=== PATIENT | female | born 1945 | race Hispanic/Latino ===

== ENCOUNTER 2017-10-26 10:18 | Outpatient (CLI) | payer BC ==
[2017-10-26 11:09] LABS: Albumin 4.3 g/dL (3.9-5); Calcium 9.7 mg/dL (8.4-10.2); Chol/HDL Ratio 2.74 %
[2017-10-26 11:38] LABS: Free T4 (Free Thyroxine) 1.53 ng/dL (0.76-1.46)
== END 2017-10-26 10:19 | disposition home or self-care (01) ==
LOC: LAB 10:18
PROVIDERS: ATTEND Internal Medicine
DX: E78.2 Mixed hyperlipidemia (principal); I10 Essential (primary) hypertension; E03.8 Other specified hypothyroidism; K21.9 Gastro-esophageal reflux disease without esophagitis; E78.00 Pure hypercholesterolemia, unspecified; M19.90 Unspecified osteoarthritis, unspecified site; E03.9 Hypothyroidism, unspecified; Z87.891 Personal history of nicotine dependence
CPT/HCPCS: 36415; 80053; 80061; 84439; 84443; 84480

== ENCOUNTER 2018-04-05 11:52 | Outpatient (CLI) | payer BC ==
--- NOTE | 2018-04-05 13:16 | XRay Report ---
Weight-bearing AP and lateral right knee: Pain. There is mild anterior flexion of the knee. There is a mild genu valgus angulation of the knee joint. The lateral knee joint space is narrowed and large periarticular spurs are identified laterally. The articular margins still appear intact. The medial knee joint space appears generally unremarkable. There is retropatellar narrowing with articular spurs both superiorly and inferiorly. The bones appear moderately well mineralized. There is no evidence of swelling nor effusion. Impression: Degenerative lateral joint compartment changes with genu valgus angulation.
== END 2018-04-05 11:53 | disposition home or self-care (01) ==
LOC: XRAY 11:52
PROVIDERS: ATTEND Orthopaedic Surgery
DX: M17.11 Unilateral primary osteoarthritis, right knee (principal); M21.061 Valgus deformity, not elsewhere classified, right knee; K21.9 Gastro-esophageal reflux disease without esophagitis; I10 Essential (primary) hypertension; E66.9 Obesity, unspecified; M19.90 Unspecified osteoarthritis, unspecified site; E03.9 Hypothyroidism, unspecified; Z87.891 Personal history of nicotine dependence

== ENCOUNTER 2018-09-13 11:59 | Outpatient (CLI) | payer BC ==
[2018-09-13 12:43] LABS: Basophils # (Auto) 0.1 K/mm3 (0.0-0.1); Basophils % (Auto) 0.7 % (0.0-1.8); Eosinophils # (Auto) 0.3 K/mm3 (0.0-0.4); Eosinophils % (Auto) 2.9 % (0.0-4.3); Hematocrit 32.5 % (30.3-42.9); Hemoglobin 11.1 gm/dl (10.1-14.3); Lymphocytes # (Auto) 2.9 K/mm3 (1.2-5.4); Lymphocytes % (Auto) 32.2 % (13.4-35.0); Mean Corpuscular HGB Conc 34 % (30-34); Mean Corpuscular Volume 90 fl (79-97); Monocytes # (Auto) 0.6 K/mm3 (0.0-0.8); Monocytes % (Auto) 6.8 % (0.0-7.3); Platelet Count 362 K/mm3 (140-440); Red Blood Count 3.62 M/mm3 (3.65-5.03); Red Cell Distribution Width 12.6 % (13.2-15.2)
[2018-09-13 14:07] LABS: Albumin 4.3 g/dL (3.9-5); Calcium 10.9 mg/dL (8.4-10.2)
[2018-09-13 14:23] LABS: Chol/HDL Ratio 3.25 %
[2018-09-16 13:00] LABS: Vitamin D, 25-OH, D2 <4 ng/mL
== END 2018-09-13 12:00 | disposition home or self-care (01) ==
LOC: LAB 11:59
PROVIDERS: ATTEND Internal Medicine
DX: E78.2 Mixed hyperlipidemia (principal); I10 Essential (primary) hypertension; E03.8 Other specified hypothyroidism; K21.9 Gastro-esophageal reflux disease without esophagitis; E78.00 Pure hypercholesterolemia, unspecified; E66.9 Obesity, unspecified
CPT/HCPCS: 36415; 80053; 80061; 82306; 83516; 84436; 84443; 85025

== ENCOUNTER 2018-09-28 11:32 | Outpatient (CLI) | payer BC | END 2018-09-28 11:33 | disposition home or self-care (01) | LOC: LAB 11:32 | PROVIDERS: ATTEND Internal Medicine | DX: D64.9 Anemia, unspecified (principal); K21.9 Gastro-esophageal reflux disease without esophagitis; I10 Essential (primary) hypertension; E66.9 Obesity, unspecified; E03.9 Hypothyroidism, unspecified | CPT/HCPCS: 36415; 82270; 82607; 82728; 82747; 83540; 85045 ==

== ENCOUNTER 2019-02-08 06:32 | Inpatient (IN) | payer BC, MEDICARE ==
[2019-01-31 13:14] LABS: Basophils # (Auto) 0.1 K/mm3 (0.0-0.1); Eosinophils # (Auto) 0.4 K/mm3 (0.0-0.4); Eosinophils % (Auto) 4.4 % (0.0-4.3); Hematocrit 34.4 % (30.3-42.9); Hemoglobin 11.6 gm/dl (10.1-14.3); Lymphocytes # (Auto) 2.7 K/mm3 (1.2-5.4); Lymphocytes % (Auto) 33.3 % (13.4-35.0); Mean Corpuscular HGB Conc 34 % (30-34); Mean Corpuscular Volume 89 fl (79-97); Monocytes # (Auto) 0.5 K/mm3 (0.0-0.8); Monocytes % (Auto) 5.6 % (0.0-7.3); Platelet Count 329 K/mm3 (140-440); Red Blood Count 3.89 M/mm3 (3.65-5.03); Red Cell Distribution Width 13.2 % (13.2-15.2)
[2019-01-31 13:33] LABS: Calcium 10.1 mg/dL (8.4-10.2)
[~2019-02-08 06:32] MED LIST: BUPIVACAINE/PF (0.5%) 5 MG/1 ML 30 ML VIAL INFILTRATI ONE; MORPHINE 10 MG/1 ML INJ IM ONE; SODIUM CHLORIDE 0.9% 50 ML VIAL INFILTRATI ONE; SODIUM CHLORIDE 0.9% IRRIG SOLN 2000 ML IR ONE
[2019-02-08] MEDS ORDERED: fentaNYL 100 MCG/2 ML INJ IV NR (07:30)
[2019-02-08] MEDS ORDERED: ACETAMINOPHEN 500 MG TAB PO NR (07:31)
[2019-02-08] MEDS: LACTATED RINGERS 1,000 ML IV SCH (07:40)
[2019-02-08] MEDS ORDERED: TRANEXAMIC ACID 1,000 MG/10 ML ONE (08:00)
[2019-02-08] MEDS ORDERED: BUPIVACAINE/PF (0.5%) 5 MG/1 ML 30 ML VIAL INFILTRATI ONE ×2 (08:00→10:28)
[2019-02-08] MEDS ORDERED: MIDAZOLAM 2 MG/2 ML INJ IV NR (08:00)
[2019-02-08] MEDS ORDERED: CELECOXIB 200 MG CAP PO NR (08:00)
[2019-02-08] MEDS ORDERED: KETOROLAC 30 MG/1 ML INJ ONE (08:00)
[2019-02-08] MEDS ORDERED: SODIUM CHLORIDE 0.9% 200 ML ONE (08:01)
[2019-02-08] MEDS ORDERED: SODIUM CHLORIDE 0.9% 50 ML ONE (08:01)
[2019-02-08] MEDS ORDERED: ONDANSETRON 4 MG/2 ML INJ IV PRN ×2 (08:10→10:58)
[2019-02-08] MEDS ORDERED: HYDROmorphone 1 MG/1 ML INJ IV PRN (08:10)
--- NOTE | 2019-02-08 08:11 | Anesthesia Day of Surgery ---
Anesthesia Day of Surgery - Day of Surgery Patient Examined: Yes Patient H&P Reviewed: Yes Patient is NPO: Yes
--- NOTE | 2019-02-08 08:14 | Anesthesia Consultation ---
Anesthesia Consult and Med Hx Date of service: 02/08/19 - Airway Anesthetic Teeth Evaluation: Good, Caps ROM Head & Neck: Adequate Mental/Hyoid Distance: Adequate Mallampati Class: Class III Intubation Access Assessment: Probably Good - Pre-Operative Health Status ASA Pre-Surgery Classification: ASA3 Proposed Anesthetic Plan: General Nerve Block: AC - Pulmonary Hx Smoking: Yes (STOPPED 1995) SOB: Yes (SOB) Hx Sleep Apnea: Yes (DX SLEEP APNEA WITH CPAP USE.) - Cardiovascular System Hx Hypertension: Yes (X 10 YRS) Hx Heart Murmur: Yes - Central Nervous System Hx Back Pain: Yes - Gastrointestinal Hx Gastroesophageal Reflux Disease: Yes (mild, controlled w/ meds) - Endocrine Hx Thyroid Disease: Yes Hx Hypothyroidism: Yes (ON DAILY MEDS) - Other Systems Hx Cancer: No Hx Obesity: Yes (morbid)
[2019-02-08] MEDS ORDERED: fentaNYL 100 MCG/2 ML INJ ONE (08:17)
[2019-02-08] MEDS ORDERED: PROPOFOL 200 MG/20 ML VIAL IV ONE (08:17)
[2019-02-08] MEDS ORDERED: SODIUM CHLORIDE 0.9% 100 ML ONE (08:18)
[2019-02-08] MEDS ORDERED: LIDOCAINE MPF (2%) 20 MG/1 ML VIAL 5 ML ONE (08:18)
[2019-02-08] MEDS ORDERED: BUPIVACAINE-EPINEPHRINE/PF 0.25%-1:200,000 (30 ML) VIAL INFILTRATI ONE (08:19)
[2019-02-08] MEDS ORDERED: TRANEXAMIC ACID 1,000 MG/10 ML IV ONE (09:20)
[2019-02-08] MEDS ORDERED: ceFAZolin/STERILE WATER 2 GM/20 ML SYRINGE IV NR (09:30)
[2019-02-08] MEDS ORDERED: MORPHINE 10 MG/1 ML INJ ONE (09:35)
[2019-02-08] MEDS ORDERED: SODIUM CHLORIDE 0.9% IRRIG SOLN 2000 ML IR ONE (10:15)
[2019-02-08] MEDS ORDERED: MORPHINE 10 MG/1 ML INJ IM ONE (10:28)
[2019-02-08] MEDS ORDERED: SODIUM CHLORIDE 0.9% 50 ML VIAL INFILTRATI ONE (10:28)
[2019-02-08] MEDS ORDERED: methylPREDNISolone ACETATE 40 MG/1 ML INJ ONE (10:33)
[2019-02-08] MEDS ORDERED: ONDANSETRON 4 MG/2 ML INJ ONE (10:38)
[2019-02-08] MEDS ORDERED: PHENYLEPHRINE/NS 1,000 MCG/10 ML SYRINGE (OR USE) IV ONE (10:39)
--- NOTE | 2019-02-08 11:08 | Procedure Note ---
Date of procedure: 02/08/19 Pre-op diagnosis: severe arthritis right knee Post-op diagnosis: same Procedure: Right total knee arthroplasty Procedure The patient was brought to the or after the obturator nerve block and preoperative holding, she was placed in the or table in supine position following induction with Mac anesthesia the patient's right lower extremity was prepped and draped in the usual sterile manner. A timeout procedure was done to identify the patient and the correct operative site The leg was exsanguinated followed by insufflation of the pneumatic tourniquet to 300 mmHg. The midline incision was made centered over the patella this is taken down distally towards due to multiple medical incision was carried down sharply through skin and subcutaneous A medial parapatellar approach was used to gain access to the knee joint. The knee was flexed to 90 following routine examination revealed typical osteoarthritic changes where along the medial lateral compartments with peripheral osteophytes and bare bone in some places followinga large drill bit was used to enter the distal femoral canal following this the distal femoral cutting was applied approximately 8-9 mm of bone was resected next the attention was turned to the proximal tibia using the external alignment again 8-9 mL of proximal tibia was resected care was taken to protect the medial and lateral collateral ligaments the cruciate ligaments were sacrificed longus sizing of the femoral component was performed a 4 plus femoral component was selected this was followed by application of the 4 in 1 cutting block care was taken to resect the anterior posterior as well as solution at this at this point in time the knee was sized A flexion and extension Of 10 mm was selected this was followed by application of the trial components the knee was then taken to or range of motion and was found to be stable following this fixation holes were applied to both the distal femur and proximal tibia care was taken to remove the medial lateral menisci as well as any excess bone and soft tissue debris the knee was then copiously irrigated using pulse lavage The bone cement was mixed the bone bleeding surfaces were wiped dry using sterile gauze for menisci tibial component was inserted using the cement technique the 10 mm polyethylene spacer was applied and secured this was followed by placement of the femoral component again excess cement was removed the knee was then held in flexion ostomy extension until the cement hardened following hardening of cement again a second look was performed and the residual soft tissue N cement debris were removed at this time the knee was then taken through a range of motion and was found to be stable next the medial patellar retinaculum incision was repaired using #1 Vicryl in interrupted [id number] suture pattern the subcutaneous and skin were closed in a routine manner. Dressings were applied the patient tolerated the procedure the retinal complications he was then taken to postanesthesia recovery Anesthesia: MAC, regional Surgeon: SCARLET BARRETT Funding Analyst: EDVIN PERALES Estimated blood loss: 50-100ml Pathology: list (bone and cartilage right knee) Specimen disposition: to lab Condition: stable Disposition: PACU
--- NOTE | 2019-02-08 14:56 | Post Anesthesia Evaluation ---
- Post Anesthesia Evaluation Patient Participated: Yes Airway Patent: Yes Stable Respiratory Function: Yes Nausea/Vomiting: No Temp > 96.8F: Yes Pain Manageable: Yes Adequeate Hydration: Yes Anesthesia Complications: No Block Receding Appropriately: Yes Patient on Ventilator: No
[2019-02-08] MEDS: HYDROcodone/ACETAMINOPHEN 5-325 MG TAB PO PRN (22:47)
[2019-02-09] MEDS: LACTATED RINGERS 1,000 ML IV SCH ×2 (02:07→15:46)
[2019-02-09] MEDS: HYDROcodone/ACETAMINOPHEN 5-325 MG TAB PO PRN ×3 (07:33→19:48)
[2019-02-09 09:29] LABS: Hemoglobin 10.1 gm/dl (10.1-14.3)
--- NOTE | 2019-02-09 10:00 | XRay Report ---
RIGHT KNEE, 3 VIEWS INDICATION: postop evaluation. COMPARISON: None. IMPRESSION: Recent right knee arthroplasty changes are evident. The hardware appears well applied. T here is normal alignment at the joint space. No fracture or bone lesion. Anterior soft tissue swelli ng and gas are consistent with recent surgery. Signer Name: Rob Almaraz Jr, MD Signed: 02/09/2019 9:55 AM Workstation Name: [id number]
[2019-02-09] MEDS: ENOXAPARIN 40 MG/0.4 ML INJ SUB-Q SCH (13:35)
--- NOTE | 2019-02-09 22:45 | Progress Note ---
Assessment and Plan s/p right TKR post op day 1 doing ok continue PT and observation Subjective Date of service: 02/09/19 Interval history: c/o right knee pain after PT session, otherwise ok Objective Vital signs: Vital Signs - 12hr 02/09/19 02/09/19 02/09/19 13:05 16:12 19:17 Temperature 97.9 F 97.9 F 98.3 F Pulse Rate 72 73 74 Respiratory 20 20 17 Rate Blood Pressure 120/47 131/73 138/50 O2 Sat by Pulse 100 100 99 Oximetry 02/09/19 02/09/19 02/09/19 19:48 20:48 22:10 Temperature Pulse Rate Respiratory 20 18 Rate Blood Pressure O2 Sat by Pulse 98 Oximetry Incision: healing, clean and dry Weight bearing status: as tolerated - Labs CBC & BMP: 02/09/19 08:52 01/31/19 12:45 Labs: Abnormal lab results 02/09/19 Range/Units 08:52 Hct 30.0 L (30.3-42.9) %
[2019-02-09] MEDS ORDERED: ALBUTEROL 8.5 GM INHALATION IH PRN (23:31)
[2019-02-09] MEDS ORDERED: BUSPIRONE HCL 7.5 MG PO PRN (23:31)
--- NOTE | 2019-02-09 23:38 | Consultation ---
History of Present Illness - Reason for Consult Consult date: 02/09/19 medical management Requesting physician: SCARLET JACKSON - History of Present Illness Status post right TKR,. Patient doing well. No shortness of breath or chest pain. No fever or chills. Past History Past Medical History: hypertension, hypothyroidism, other (home, generalized anxiety disorder) Past Surgical History: total knee replacement Social history: lives with family Family history: hypertension Medications and Allergies Allergies Allergy/AdvReac Type Severity Reaction Status Date / Time No Known Allergies Allergy Verified 01/14/14 15:55 Home Medications Medication Instructions Recorded Confirmed Last Taken Type Lisinopril/Hydrochlorothiazide 1 tab PO DAILY 11/13/13 02/08/19 02/08/19 05:00 History [Lisinopril-Hctz 20-12.5 mg Tab] Mv,Isaias,Min/Iron/Folic Acid/Lut 1 tab PO DAILY 11/13/13 02/08/19 02/07/19 09:00 History [Complete Multi Tablet] Vitamin B Complex/Folic Acid 1 tab PO DAILY 11/13/13 02/08/19 02/07/19 09:00 History [Super Quints B-50 Tablet] Magnesium 250 mg PO DAILY 01/14/14 02/08/19 02/07/19 09:00 History Levothyroxine [Synthroid] 75 mcg PO QAM 12/09/15 02/08/19 02/07/19 09:00 History ALBUTEROL Inhaler (OR & NICU) 1 puff IH PRN PRN 01/31/19 01/31/19 Unknown History [ProAir HFA Inhaler] Ascorbic Acid [Vitamin C] 1,000 mg PO DAILY 01/31/19 02/08/19 02/07/19 09:00 History Biotin [Biotin 1,000 chew] 1,000 mcg PO DAILY 01/31/19 02/08/19 02/07/19 09:00 History Buspirone HCl [busPIRone] 7.5 mg PO PRN PRN 01/31/19 01/31/19 Unknown History Buspirone HCl [busPIRone] 15 mg PO DAILY 01/31/19 02/08/19 02/07/19 09:00 History Cholecalciferol Vit D3 [Vitamin D3 1,000 unit PO QDAY 11/2702/08/19 02/07/19 09:00 History 1,000 UNIT TAB] Tyler-3/Dha/Epa/Fish Oil [Fish Oil 1 each PO DAILY 01/31/19 02/08/19 02/07/19 09:00 History 1,200 mg Softgel] Turmeric 400 mg PO DAILY 01/31/19 02/08/19 02/07/19 09:00 History Apixaban [Eliquis] 5 mg PO DAILY #30 tablet 02/09/19 Unknown Rx Oxycodone HCl/Acetaminophen 1 each PO Q6HR PRN #30 tablet 02/09/19 Unknown Rx [Percocet 7.5/325 mg] Active Meds: Active Medications Acetaminophen/Hydrocodone Bitart ([place] 5/325) 1 each PO Q6H PRN PRN Reason: Pain, Moderate (4-6) Last Admin: 02/09/19 19:48 Dose: 1 each Documented by: Acetaminophen/Hydrocodone Bitart ([place] 5/325) 2 each PO Q6H PRN PRN Reason: Pain , Severe (7-10) Albuterol (Proair) 1 puff IH PRN PRN PRN Reason: Shortness Of Breath Cholecalciferol (Vitamin D3) 1,000 unit PO QDAY [facility] Enoxaparin Sodium (Enoxaparin) 40 mg SUB-Q QDAY [facility] Last Admin: 02/09/19 13:35 Dose: 40 mg Documented by: Lactated Ringer's (Lactated Ringers) 1,000 mls @ 75 mls/hr IV DIRECT JEANNA Last Admin: 02/09/19 15:46 Dose: 75 mls/hr Documented by: Levothyroxine Sodium (Synthroid) 75 mcg PO QAM [facility] Miscellaneous Medication (Ascorbic Acid [Vitamin C]) 1,000 mg PO DAILY [facility] Miscellaneous Medication (Buspirone Hcl [Buspirone]) 7.5 mg PO PRN PRN PRN Reason: Anxiety Miscellaneous Medication (Lisinopril/Hydrochlorothiazide [Lisinopril-Hctz 20- 12.5 Mg Tab]) 1 tab PO DAILY [facility] Ondansetron HCl (Zofran) 4 mg IV Q8H PRN PRN Reason: Nausea And Vomiting Sodium Chloride (Sodium Chloride Flush Syringe 10 Ml) 10 ml IV PRN [facility] Review of Systems All systems: negative Exam - Constitutional Vitals: Temp Pulse Resp BP Pulse Ox 98.3 F 74 18 138/50 98 02/09/19 19:17 02/09/19 19:17 02/09/19 20:48 02/09/19 19:17 02/09/19 22:10 General appearance: Present: no acute distress, well-nourished - EENT Eyes: Present: PERRL ENT: hearing intact, clear oral mucosa - Neck Neck: Present: supple, normal ROM - Respiratory Respiratory effort: normal Respiratory: bilateral: CTA - Cardiovascular Heart rate: 70 Rhythm: regular Heart Sounds: Present: S1 & S2. Absent: rub, click - Extremities Extremities: no ischemia, pulses intact, pulses symmetrical, No edema, abnormal Extremity abnormal: other (right knee in dressing) Peripheral Pulses: within normal limits - Abdominal General gastrointestinal: Present: soft, non-tender, non-distended, normal bowel sounds Female genitourinary: Present: normal - Integumentary Integumentary: Present: clear, warm, dry - Musculoskeletal Musculoskeletal: gait normal, strength equal bilaterally - Psychiatric Psychiatric: appropriate mood/affect, intact judgment & insight - Neurologic Neurologic: CNII-XII intact, moves all extremities Results - Labs CBC & Chem 7: 02/09/19 08:52 01/31/19 12:45 Labs: Abnormal lab results 02/09/19 Range/Units 08:52 Hct 30.0 L (30.3-42.9) % Assessment and Plan - Patient Problems (1) Hx of total knee arthroplasty Current Visit: Yes Status: Acute Qualifiers: Laterality: right Qualified Code(s): Z96.651 - Presence of right artificial knee joint Plan to address problem: Postop day 1 Continue physical therapy Patient was discharged on Tuesday or Tuesday after talking with Dr. Jackson [facility] therapy to be arranged by case management (2) Hypertension Current Visit: Yes Status: Chronic Qualifiers: Hypertension type: unspecified secondary hypertension Qualified Code(s): I15.9 - Secondary hypertension, unspecified; I15 - Secondary hypertension Plan to address problem: Continue antihypertensives (3) Hypothyroidism (acquired) Current Visit: Yes Status: Chronic Plan to address problem: Continue Synthroid (4) Vitamin D deficiency Current Visit: Yes Status: Chronic Plan to address problem: Continue vitamin D (5) Generalized anxiety disorder Current Visit: Yes Status: Acute Plan to address problem: Continue BuSpar (6) DVT prophylaxis Current Visit: Yes Status: Acute Plan to address problem: Continue SCDs and GI prophylaxis (7) Discharge planning issues Current Visit: Yes Status: Acute Plan to address problem: Patient to be discharged on Tuesday or Tuesday after talking with Dr. Jackson. Jered Barajas calls Dr. Jackson and conform Also case management to arrange for home health physical therapy
[2019-02-09] MEDS ORDERED: busPIRone 5 MG TAB PO PRN (23:39)
[2019-02-09] MEDS ORDERED: ALBUTEROL 2.5 MG/3 ML NEBU IH PRN (23:40)
[2019-02-10] MEDS: HYDROcodone/ACETAMINOPHEN 5-325 MG TAB PO PRN ×3 (04:59→21:47)
[2019-02-10] MEDS: LEVOTHYROXINE 75 MCG TAB PO SCH (06:19)
[2019-02-10] MEDS ORDERED: NON-FORMULARY EACH (Ascorbic Acid [Vitamin C] 1,000 MG) PO SCH (10:00)
[2019-02-10] MEDS ORDERED: LISINOPRIL PO SCH (10:00)
[2019-02-10] MEDS ORDERED: HYDROCHLOROTHIAZIDE PO SCH (10:00)
[2019-02-10] MEDS ORDERED: [UNRECOGNIZED DRUG - OTHER] PO SCH (10:00)
[2019-02-10] MEDS: LISINOPRIL 20 MG TAB PO SCH (11:38)
[2019-02-10] MEDS: FAMOTIDINE 20 MG TAB PO SCH ×2 (11:38→21:47)
[2019-02-10] MEDS: hydroCHLOROthiazide 12.5 MG CAP PO SCH (11:38)
[2019-02-10] MEDS: ENOXAPARIN 40 MG/0.4 ML INJ SUB-Q SCH (11:38)
[2019-02-10] MEDS: ASCORBIC ACID 500 MG TAB PO SCH (11:39)
[2019-02-10] MEDS: CHOLECALCIFEROL (VIT D3) 1000 UNIT TAB PO SCH (11:39)
--- NOTE | 2019-02-10 17:28 | Progress Note ---
Assessment and Plan Assessment and plan: s/p Total knee arthroplasty for severe arthritis Continue Physical Therapy Likely dc home with Home health physical therapy on Tuesday Pain management with [facility] Hypertension Continue antihypertensives Hypothyroidism Continue Synthroid Vitamin D deficiency Continue vitamin D Generalized anxiety disorder Continue BuSpar DVT prophylaxis Continue Lovenox History Interval history: Less pain right knee Doing well with ambulation with PT Hospitalist Physical - Physical exam Narrative exam: Gen: Not in acute distress, lying in bed HEENT: Normocephalic, atraumatic Neck: supple, no JVD Heart: S1 and S2 reg, no murmurs, rubs or gallop Lungs: clear to auscultation, no crackles Abd: soft, NT, non distended, normal BS Ext: Right knee and leg in splint, no clubbing, no cyanosis Neuro: Awake, alert, oriented X 3, moves all ext - Constitutional Vitals: Temp Pulse Resp BP Pulse Ox 97.0 F L 72 20 119/54 99 02/10/19 15:06 02/10/19 15:06 02/10/19 15:06 02/10/19 15:06 02/10/19 15:06 General appearance: Present: no acute distress, obese Results - Labs CBC & Chem 7: 02/11/19 05:43 02/11/19 05:43 Labs: Laboratory Last Values WBC 8.2 K/mm3 (4.5-11.0) 01/31/19 12:45 RBC 3.89 M/mm3 (3.65-5.03) 01/31/19 12:45 Hgb 10.1 gm/dl (10.1-14.3) 02/09/19 08:52 Hct 30.0 % (30.3-42.9) L 02/09/19 08:52 MCV 89 fl (79-97) 01/31/19 12:45 MCH 30 pg (28-32) 01/31/19 12:45 MCHC 34 % (30-34) 01/31/19 12:45 RDW 13.2 % (13.2-15.2) 01/31/19 12:45 Plt Count 329 K/mm3 (140-440) 01/31/19 12:45 Lymph % (Auto) 33.3 % (13.4-35.0) 01/31/19 12:45 [place] % (Auto) 5.6 % (0.0-7.3) 01/31/19 12:45 Eos % (Auto) 4.4 % (0.0-4.3) H 01/31/19 12:45 Baso % (Auto) 1.0 % (0.0-1.8) 01/31/19 12:45 Lymph # 2.7 K/mm3 (1.2-5.4) 01/31/19 12:45 [place] # 0.5 K/mm3 (0.0-0.8) 01/31/19 12:45 Eos # 0.4 K/mm3 (0.0-0.4) 01/31/19 12:45 Baso # 0.1 K/mm3 (0.0-0.1) 01/31/19 12:45 Seg Neutrophils % 55.7 % (40.0-70.0) 01/31/19 12:45 Seg Neutrophils # 4.5 K/mm3 (1.8-7.7) 01/31/19 12:45 Sodium 137 mmol/L (137-145) 01/31/19 12:45 Potassium 4.0 mmol/L (3.6-5.0) 01/31/19 12:45 Chloride 102.0 mmol/L (98-107) 01/31/19 12:45 Carbon Dioxide 17 mmol/L (22-30) L 01/31/19 12:45 Anion Gap 22 mmol/L 01/31/19 12:45 BUN 28 mg/dL (7-17) H 01/31/19 12:45 Creatinine 1.1 mg/dL (0.7-1.2) 01/31/19 12:45 Estimated GFR 49 ml/min 01/31/19 12:45 BUN/Creatinine Ratio 25 % 01/31/19 12:45 Glucose 89 mg/dL (65-100) 01/31/19 12:45 Calcium 10.1 mg/dL (8.4-10.2) 01/31/19 12:45 Total Bilirubin 0.20 mg/dL (0.1-1.2) 01/31/19 12:45 AST 19 units/L (5-40) 01/31/19 12:45 ALT 12 units/L (7-56) 01/31/19 12:45 Alkaline Phosphatase 53 units/L (35-129) 01/31/19 12:45 Total Protein 7.1 g/dL (6.3-8.2) 01/31/19 12:45 Albumin 4.0 g/dL (3.9-5) 01/31/19 12:45 Albumin/Globulin Ratio 1.3 % 01/31/19 12:45 Active Medications - Current Medications Current Medications: Generic Name Dose Route Start Last Admin Trade Name Freq PRN Reason Stop Dose Admin Acetaminophen/Hydrocodone Bitart 1 each 02/08/19 10:58 02/10/19 04:59 [place] 5/325 PO 1 each Q6H PRN Administration Pain, Moderate (4-6) Acetaminophen/Hydrocodone Bitart 2 each 02/09/19 14:58 02/10/19 11:41 [place] 5/325 PO 2 each Q6H PRN Administration Pain , Severe (7-10) Albuterol 2.5 mg 02/09/19 23:40 Proventil IH Q4HRT PRN Shortness Of Breath Ascorbic Acid 1,000 mg 02/10/19 10:00 02/10/19 11:39 Vitamin C PO 1,000 mg QDAY JEANNA Administration Buspirone HCl 7.5 mg 02/09/19 23:39 Buspar PO QDAY PRN Anxiety Cholecalciferol 1,000 unit 02/10/19 10:00 02/10/19 11:39 Vitamin D3 PO 1,000 unit QDAY JEANNA Administration Enoxaparin Sodium 40 mg 02/09/19 10:00 02/10/19 11:38 Enoxaparin SUB-Q 40 mg QDAY JEANNA Administration Famotidine 20 mg 02/10/19 10:00 02/10/19 11:38 Pepcid PO 20 mg BID JEANNA Administration Hydrochlorothiazide 12.5 mg 02/10/19 10:00 02/10/19 11:38 Hctz PO 12.5 mg QDAY JEANNA Administration Lactated Ringer's 1,000 mls @ 75 mls/hr 02/08/19 08:00 02/09/19 15:46 Lactated Ringers IV 75 mls/hr DIRECT JEANNA Administration Levothyroxine Sodium 75 mcg 02/10/19 06:00 02/10/19 06:19 Synthroid PO 75 mcg QAM@0600 JEANNA Administration Lisinopril 20 mg 02/10/19 10:00 02/10/19 11:38 Zestril PO 20 mg QDAY JEANNA Administration Ondansetron HCl 4 mg 02/08/19 10:58 Zofran IV Q8H PRN Nausea And Vomiting Sodium Chloride 10 ml 02/08/19 11:00 Sodium Chloride Flush Syringe 10 Ml IV PRN JEANNA
[2019-02-10] MEDS: LACTATED RINGERS 1,000 ML IV SCH (17:32)
[2019-02-11 06:09] LABS: Hematocrit 33.6 % (30.3-42.9); Hemoglobin 11.2 gm/dl (10.1-14.3); Mean Corpuscular HGB Conc 33 % (30-34); Mean Corpuscular Volume 90 fl (79-97); Platelet Count 339 K/mm3 (140-440); Red Blood Count 3.72 M/mm3 (3.65-5.03); Red Cell Distribution Width 13.4 % (13.2-15.2)
[2019-02-11 06:29] LABS: BUN/Creatinine Ratio 17; Blood Urea Nitrogen 15 mg/dL (7-17); Calcium 9.2 mg/dL (8.4-10.2); Hemolysis Index 135
[2019-02-11] MEDS: LEVOTHYROXINE 75 MCG TAB PO SCH (06:44)
[2019-02-11] MEDS: HYDROcodone/ACETAMINOPHEN 5-325 MG TAB PO PRN ×2 (09:45→13:34)
[2019-02-11] MEDS: FAMOTIDINE 20 MG TAB PO SCH ×2 (09:45→22:20)
[2019-02-11] MEDS: ENOXAPARIN 40 MG/0.4 ML INJ SUB-Q SCH (09:47)
[2019-02-11] MEDS: CHOLECALCIFEROL (VIT D3) 1000 UNIT TAB PO SCH (09:47)
[2019-02-11] MEDS: LISINOPRIL 20 MG TAB PO SCH (09:48)
[2019-02-11] MEDS: ASCORBIC ACID 500 MG TAB PO SCH (09:48)
[2019-02-11] MEDS: hydroCHLOROthiazide 12.5 MG CAP PO SCH (09:48)
[2019-02-12] MEDS: LEVOTHYROXINE 75 MCG TAB PO SCH (06:01)
[2019-02-12 07:49] VITALS: BP 125/56
[2019-02-12] MEDS: CHOLECALCIFEROL (VIT D3) 1000 UNIT TAB PO SCH (09:41)
[2019-02-12] MEDS: FAMOTIDINE 20 MG TAB PO SCH (09:41)
[2019-02-12] MEDS: ASCORBIC ACID 500 MG TAB PO SCH (09:41)
[2019-02-12] MEDS: ENOXAPARIN 40 MG/0.4 ML INJ SUB-Q SCH (09:42)
[2019-02-12] MEDS: LISINOPRIL 20 MG TAB PO SCH (09:42)
[2019-02-12] MEDS: hydroCHLOROthiazide 12.5 MG CAP PO SCH (09:42)
--- NOTE | 2019-02-12 15:59 | Event Note ---
Date: 02/12/19 Patient medically stable for discharge. Resume home medications.
--- NOTE | 2019-02-12 16:58 | Discharge Summary ---
Providers - Providers Date of Admission: 02/08/19 06:32 Date of discharge: 02/12/19 Attending physician: SCARLET BARRETT MD 02/08/19 11:01 Physical Therapy Evaluation and Treat [CONS] Routine Comment: Reason For Exam: postoperative evaluation Weight bearing status?: Full wt bearing Assistive devices?: Yes If so list: Walker 02/08/19 15:35 Consult to Case Management [CONS] Routine Services Needed at Discharge: Home Health Services DME Equipment Physical Therapy Notified:: CM Was contact made?: Yes If yes, spoke with:: JAMIE Comment:: WILL FOLLOW UP 02/09/19 16:47 Consult to Physician [CONS] Routine Comment: Consulting Provider: EDVIN FIGUEROA Physician Instructions: Reason For Exam: HTN, REGAN, heart murmur, Hypothyriod 02/09/19 23:39 Consult to Case Management [CONS] Routine Services Needed at Discharge: Home Health Services Physical Therapy Notified:: cm notified Primary care physician: SEGUNDO DAVIS Hospitalization Reason for admission: right knee pain Condition: Stable Procedures: right total knee replacement Hospital course: 73 y/o female with severe osteoarthritis right knee, tried conservative treatment for past several years but lately not helping to relieve symptoms. Admitted and taken to the OR where a right total knee replacement done without complications. post op seen by PT and case management services. Arrangements made for discharge with follow up in my office in 2 wks... Disposition: [id number] HOME UNDER HOME [facility] Core Measure Documentation - Palliative Care Palliative Care/ Comfort Measures: Not Applicable - Core Measures Any of the following diagnoses?: none - VTE Discharge Requirements Deep Vein Thrombosis/Pulmonary Embolism Present on Admission: No Has pt received <5 days of overlap therapy or INR<2.0: Yes Anticoagulant overlap therapy prescribed at discharge: Yes - Acute DE Discharge Requirements Aspirin at discharge: No Reason for no aspirin on DC: Medical contraindication KAMILA/ARB for LVSD if EF <40%: Not Applicable Statin for LDL = or >100 mg/dl on DC: Not Applicable - Heart Failure Discharge Requirements KAMILA/ARB for LVSD if EF <40%: Not Applicable - Stroke Discharge Requirements Statin for LDL = or >70 mg/dl on DC: Not Applicable Exam - Physical Exam Narrative exam: right knee - incision healing well, no signs of infection, negative Kana's sign, distal n/v intact - Constitutional Vitals: Temp Pulse Resp BP Pulse Ox 97.7 F 95 H 20 125/56 97 02/12/19 07:41 02/12/19 09:42 02/12/19 07:41 02/12/19 09:42 02/12/19 09:16 General appearance: Present: no acute distress, well-nourished - EENT Eyes: Present: PERRL ENT: hearing intact, clear oral mucosa - Neck Neck: Present: supple, normal ROM - Respiratory Respiratory effort: normal Respiratory: bilateral: CTA - Cardiovascular Heart Sounds: Present: S1 & S2. Absent: rub, click - Extremities Extremities: pulses symmetrical, No edema Peripheral Pulses: within normal limits - Abdominal General gastrointestinal: Present: soft, non-tender, non-distended, normal bowel sounds Female genitourinary: Present: normal - Integumentary Integumentary: Present: clear, warm, dry - Musculoskeletal Musculoskeletal: gait normal, strength equal bilaterally - Psychiatric Psychiatric: appropriate mood/affect, intact judgment & insight - Neurologic Neurologic: CNII-XII intact, moves all extremities Plan Activity: advance as tolerated Weight Bearing Status: Weight Bear as Tolerated Diet: low fat, low cholesterol, low carbohydrate Wound: keep clean and dry Special Instructions: physical therapy Durable Medical Equipment Needed Upon Discharge: Walker-Standard, Bedside Commode Follow up with: SEGUNDO DAVIS MD [Primary Care Provider] - 7 Days Prescriptions: Apixaban [Eliquis] 5 mg PO DAILY #30 tablet Oxycodone HCl/Acetaminophen [Percocet 7.5/325 mg] 1 each PO Q6HR PRN #30 tablet PRN Reason: Pain
== END 2019-02-12 17:55 | disposition home health service (06) | DRG 470 ==
LOC: 3A 06:32 → 3B-SURG 11:33
PROVIDERS: ADMIT Orthopaedic Surgery; ATTEND Orthopaedic Surgery
PROC: 0SRC0J9 Replacement of Right Knee Joint with Synthetic Substitute, Cemented, Open Approach (ICD-10-PCS; principal; 2019-02-08)
PROC: 3E0T3BZ Introduction of Anesthetic Agent into Peripheral Nerves and Plexi, Percutaneous Approach (ICD-10-PCS; 2019-02-08)
DX: M17.11 Unilateral primary osteoarthritis, right knee (principal); I10 Essential (primary) hypertension; G47.30 Sleep apnea, unspecified; K21.9 Gastro-esophageal reflux disease without esophagitis; E03.9 Hypothyroidism, unspecified; F41.1 Generalized anxiety disorder; E66.01 Morbid (severe) obesity due to excess calories; Z68.38 Body mass index [BMI] 38.0-38.9, adult; Z87.891 Personal history of nicotine dependence; Z82.49 Family history of ischemic heart disease and other diseases of the circulatory system; Z79.899 Other long term (current) drug therapy
CPT/HCPCS: 36415; 64450; 80048; 80053; 85014; 85018; 85025; 85027; 88304; 88305; 88311; 94660; 94760; G0378; A4217; C1776; J0690; J1030; J1650; J1885; J2250; J2270; J2370; J2405; J2704; J3010; J7120

== ENCOUNTER 2019-05-03 11:40 | Outpatient (CLI) | payer BC ==
[2019-05-03 12:36] LABS: Albumin 4.3 g/dL (3.9-5); Calcium 10.2 mg/dL (8.4-10.2); Chol/HDL Ratio 3.45 %
== END 2019-05-03 11:41 | disposition home or self-care (01) ==
LOC: LAB 11:40
PROVIDERS: ATTEND Internal Medicine
DX: I10 Essential (primary) hypertension (principal); E78.2 Mixed hyperlipidemia; E03.8 Other specified hypothyroidism
CPT/HCPCS: 36415; 80053; 80061; 83516; 84436; 84443

== ENCOUNTER 2019-06-01 07:26 | Outpatient (CLI) | payer BC ==
--- NOTE | 2019-06-01 10:29 | Cat Scan Report ---
CT HEAD WITHOUT CONTRAST INDICATION / CLINICAL INFORMATION: MEMORY [id number] amnesia. TECHNIQUE: Axial imaging performed from the skull apex through the skull base without the use of cont rast. Sagittal and coronal reformatted images. All CT scans at this location are performed using CT dose reduction for ALARA by means of automated exposure control. COMPARISON: None available. FINDINGS: CEREBRAL PARENCHYMA: No significant abnormality. No acute territorial infarct. HEMORRHAGE: None. EXTRA-AXIAL SPACES: Normal in size and morphology for the patient's age. VENTRICULAR SYSTEM: Normal in size and morphology for the patient's age. MIDLINE SHIFT OR HERNIATION: None. CEREBELLUM / BRAINSTEM: No significant abnormality. CALVARIUM: No significant abnormality. ORBITS: Normal as visualized. PARANASAL SINUSES / MASTOID AIR CELLS: Normal as visualized. SOFT TISSUES of HEAD: No significant abnormality. ADDITIONAL FINDINGS: None. IMPRESSION: No acute intracranial abnormality. Normal CT head for age. Signer Name: Rob Almaraz Jr, MD Signed: 06/01/2019 10:25 AM Workstation Name: [id number]
== END 2019-06-01 07:27 | disposition home or self-care (01) ==
LOC: CT 07:26
PROVIDERS: ATTEND Internal Medicine
DX: R41.3 Other amnesia (principal)
CPT/HCPCS: 70450

== ENCOUNTER 2020-08-13 13:01 | Outpatient (CLI) | payer BC | END 2020-08-13 13:02 | disposition home or self-care (01) | LOC: XRAY 13:01 | PROVIDERS: ATTEND Podiatrist Foot & Ankle Surgery | DX: M19.071 Primary osteoarthritis, right ankle and foot (principal); R22.41 Localized swelling, mass and lump, right lower limb ==

== ENCOUNTER 2021-04-29 13:33 | Outpatient (CLI) | payer BC ==
--- NOTE | 2021-04-29 18:19 | Vascular Lab Report ---
DUPLEX DOPPLER LOWER EXTREMITY VEINS, BILATERAL INDICATION / CLINICAL INFORMATION: PAIN IN BOTH LOWER EXTREMETIES M78.604. TECHNIQUE: Duplex doppler imaging was performed through the veins of both lower extremities using ronit ous compression and other maneuvers. COMPARISON: Bilateral lower extremity venous insufficiency study 08/05/2015. FINDINGS: RIGHT COMMON FEMORAL VEIN: Negative. RIGHT FEMORAL VEIN: Negative. RIGHT POPLITEAL VEIN: Negative. RIGHT CALF VEINS: Negative. LEFT COMMON FEMORAL VEIN: Negative. LEFT FEMORAL VEIN: Negative. LEFT POPLITEAL VEIN: Negative. LEFT CALF VEINS: Negative. ADDITIONAL FINDINGS: None. IMPRESSION: 1. No sonographic evidence for DVT in either lower extremity. Scribed by: Liv Lenz RDMS, MISBAH, ADIS Scribed: 04/29/2021 4:13 PM I have reviewed the images, agree with this report, and edited this report as needed. Signer Name: Carlos Pereira MD Signed: 04/29/2021 6:14 PM Workstation Name: [id number]
== END 2021-04-29 13:34 | disposition home or self-care (01) ==
LOC: VAS 13:33
PROVIDERS: ATTEND Internal Medicine
DX: M79.604 Pain in right leg (principal); M79.605 Pain in left leg
CPT/HCPCS: 93970

== ENCOUNTER 2021-08-08 13:29 | Emergency (ER) | payer BC ==
--- NOTE | 2021-08-08 16:16 | Vascular Lab Report ---
DUPLEX DOPPLER LOWER EXTREMITY VEINS, RIGHT INDICATION: pain and swelling, nontraumatic. TECHNIQUE: Duplex doppler imaging was performed through the veins of the right lower extremity using venous comp ression and other maneuvers. COMPARISON: No relevant prior imaging study available. FINDINGS: Right Common femoral vein: Negative. Right Superficial femoral vein: Negative. Right Popliteal vein: Negative. Right Calf veins: Negative. Additional findings: None.. IMPRESSION: 1. No sonographic evidence for DVT in the right lower extremity. Signer Name: Baltazar Montelongo MD Signed: 08/08/2021 4:12 PM Workstation Name: [id number]
--- NOTE | 2021-08-08 16:32 | Emergency Department Report ---
ED Extremity Problem HPI - General Chief complaint: Extremity Injury, Lower Stated complaint: POSS BLOOD CLOG RT LEG Time Seen by Provider: 08/08/21 14:51 Source: patient Mode of arrival: Ambulatory Limitations: No Limitations - History of Present Illness Initial comments: 75-year-old white female with a past medical history of CAD and CT presents to the emergency department for evaluation of 3-day history right lower extremity pain and swelling. She denies injury or trauma but states that pain and swelling has gotten progressively worse over the past few days. She denies chest pain, shortness of breath, and hemoptysis. She states that pain that is worse is 5 out of 10. She states that she has not taken any medication for her symptoms. MD Complaint: extremity pain, extremity swelling -: Gradual, days(s) Location: right (3), lower extremity History of Same: No -: No myalgia, No arthralgia, No fever, No associated dyspnea, No associated chest pain Severity scale (0 -10): 5 Quality: aching Consistency: constant Worsens with: weight bearing Associated Symptoms: denies: chest pain, shortness of breath, fever, myalgias, arthralgias, rash - Related Data Home Medications Medication Instructions Recorded Confirmed Last Taken Lisinopril/Hydrochlorothiazide 1 tab PO DAILY 11/13/13 02/08/19 02/08/19 05:00 [Lisinopril-Hctz 20-12.5 mg Tab] Mv,Isaias,Min/Iron/Folic Acid/Lut 1 tab PO DAILY 11/13/13 02/08/19 02/07/19 09:00 [Complete Multi Tablet] Vitamin B Complex/Folic Acid 1 tab PO DAILY 11/13/13 02/08/19 02/07/19 09:00 [Super Quints B-50 Tablet] Magnesium 250 mg PO DAILY 01/14/14 02/08/19 02/07/19 09:00 Levothyroxine [Synthroid] 75 mcg PO QAM 12/09/15 02/08/19 02/07/19 09:00 Albuterol Mdi (or & Nicu Only) 1 puff IH PRN PRN 01/31/19 01/31/19 Unknown [ProAir HFA Inhaler] Ascorbic Acid [Vitamin C] 1,000 mg PO DAILY 01/31/19 02/08/19 02/07/19 09:00 Biotin [Biotin 1,000 chew] 1,000 mcg PO DAILY 01/31/19 02/08/19 02/07/19 09:00 Buspirone HCl [busPIRone] 7.5 mg PO PRN PRN 01/31/19 01/31/19 Unknown Buspirone HCl [busPIRone] 15 mg PO DAILY 01/31/19 02/08/19 02/07/19 09:00 Cholecalciferol Vit D3 [Vitamin D3 1,000 unit PO QDAY 01/31/19 02/08/19 02/07/19 09:00 1,000 UNIT TAB] [place]-3/Dha/Epa/Fish Oil [Fish Oil 1 each PO DAILY 01/31/19 02/08/19 02/07/19 09:00 1,200 mg Softgel] Turmeric 400 mg PO DAILY 01/31/19 02/08/19 02/07/19 09:00 Clopidogrel 75 mg PO DAILY 11/19/20 11/19/20 11/18/20 Previous Rx's Medication Instructions Recorded Last Taken Type Apixaban [Eliquis] 5 mg PO DAILY #30 tablet 02/09/19 Unknown Rx Oxycodone HCl/Acetaminophen 1 each PO Q6HR PRN #30 tablet 02/09/19 Unknown Rx [Percocet 7.5/325 mg] Allergies Allergy/AdvReac Type Severity Reaction Status Date / Time No Known Allergies Allergy Verified 11/19/20 10:20 ED Review of Systems ROS: Stated complaint: POSS BLOOD CLOG RT LEG Other details as noted in HPI Comment: All other systems reviewed and negative Constitutional: denies: chills, fever Respiratory: denies: shortness of breath, SOB with exertion, SOB at rest, wheez ing Cardiovascular: denies: chest pain, palpitations Gastrointestinal: denies: abdominal pain, nausea, vomiting Genitourinary: denies: urgency, dysuria Musculoskeletal: denies: back pain Neurological: denies: headache ED Past Medical Hx - Past Medical History Previous Medical History?: Yes Hx Hypertension: Yes (age 55) Hx Heart Attack/AMI: Yes (06/15/2020) Hx Congestive Heart Failure: No Hx Deep Vein Thrombosis: No Hx Pulmonary Embolism: No Hx GERD: Yes Hx Renal Disease: No Hx Arthritis: Yes (2 years ago both legs) Hx Seizures: No Hx Asthma: No Hx COPD: No Hx HIV: No - Surgical History Past Surgical History?: No Hx Pacemaker: No Hx Cholecystectomy: No Hx Appendectomy: No - Social History Smoking Status: Former Smoker - Medications Home Medications: Home Medications Medication Instructions Recorded Confirmed Last Taken Type Lisinopril/Hydrochlorothiazide 1 tab PO DAILY 11/13/13 02/08/19 02/08/19 05:00 History [Lisinopril-Hctz 20-12.5 mg Tab] Mv,Isaias,Min/Iron/Folic Acid/Lut 1 tab PO DAILY 11/13/13 02/08/19 02/07/19 09:00 History [Complete Multi Tablet] Vitamin B Complex/Folic Acid 1 tab PO DAILY 11/13/13 02/08/19 02/07/19 09:00 History [Super Quints B-50 Tablet] Magnesium 250 mg PO DAILY 01/14/14 02/08/19 02/07/19 09:00 History Levothyroxine [Synthroid] 75 mcg PO QAM 12/09/15 02/08/19 02/07/19 09:00 History Albuterol Mdi (or & Nicu Only) 1 puff IH PRN PRN 01/31/19 01/31/19 Unknown History [ProAir HFA Inhaler] Ascorbic Acid [Vitamin C] 1,000 mg PO DAILY 01/31/19 02/08/19 02/07/19 09:00 History Biotin [Biotin 1,000 chew] 1,000 mcg PO DAILY 01/31/19 02/08/19 02/07/19 09:00 History Buspirone HCl [busPIRone] 7.5 mg PO PRN PRN 01/31/19 01/31/19 Unknown History Buspirone HCl [busPIRone] 15 mg PO DAILY 01/31/19 02/08/19 02/07/19 09:00 History Cholecalciferol Vit D3 [Vitamin D3 1,000 unit PO QDAY 01/31/19 02/08/19 02/07/19 09:00 History 1,000 UNIT TAB] [place]-3/Dha/Epa/Fish Oil [Fish Oil 1 each PO DAILY 01/31/19 02/08/19 02/07/19 09:00 History 1,200 mg Softgel] Turmeric 400 mg PO DAILY 01/31/19 02/08/19 02/07/19 09:00 History Apixaban [Eliquis] 5 mg PO DAILY #30 tablet 02/09/19 Unknown Rx Oxycodone HCl/Acetaminophen 1 each PO Q6HR PRN #30 tablet 02/09/19 Unknown Rx [Percocet 7.5/325 mg] Clopidogrel 75 mg PO DAILY 11/19/20 11/19/20 11/18/20 History ED Physical Exam - General Limitations: No Limitations General appearance: alert, in no apparent distress - Head Head exam: Present: atraumatic, normocephalic - Eye Eye exam: Present: normal appearance. Absent: conjunctival injection - Neck Neck exam: Present: normal inspection. Absent: tenderness - Respiratory Respiratory exam: Present: normal lung sounds bilaterally. Absent: respiratory distress, rales, rhonchi, stridor, chest wall tenderness - Cardiovascular Cardiovascular Exam: Present: bradycardia, normal heart sounds - GI/Abdominal GI/Abdominal exam: Present: soft, normal bowel sounds. Absent: distended, tenderness, guarding, rebound, rigid - Expanded Lower Extremity Exam Left Lower Leg exam: Present: tenderness, swelling, erythema Ankle exam: Present: tenderness, swelling, erythema Neuro vascular tendon exam: Present: no vascular compromise. Absent: pulse deficit, abnormal cap refill, extremity cold to touch, pallor Gait: Positive: observed and normal - Back Exam Back exam: Present: normal inspection. Absent: CVA tenderness (R), CVA tenderness (L) - Neurological Exam Neurological exam: Present: alert, oriented X3 - Psychiatric Psychiatric exam: Present: normal affect, normal mood - Skin Skin exam: Present: warm, dry, intact, erythema ED Course Vital Signs 08/08/21 08/08/21 14:08 16:38 Temperature 97.9 F 98.2 F Pulse Rate 59 L 70 Respiratory 20 16 Rate Blood Pressure 146/92 140/85 [Right] O2 Sat by Pulse 98 98 Oximetry ED Medical Decision Making - Radiology Data Radiology results: report reviewed, image reviewed Right lower extremity ultrasound: FINDINGS: Right Common femoral vein: Negative. Right Superficial femoral vein: Negative. Right Popliteal vein: Negative. Right Calf veins: Negative. Additional findings: None.. IMPRESSION: 1. No sonographic evidence for DVT in the right lower extremity. - Medical Decision Making 75-year-old white female with a past medical history of CAD and CT presents to the emergency department for evaluation of 3-day history right lower extremity pain and swelling. She denies injury or trauma but states that pain and swelling has gotten progressively worse over the past few days. She denies chest pain, shortness of breath, and hemoptysis. She states that pain that is worse is 5 out of 10. She states that she has not taken any medication for her symptoms. Right lower extremity ultrasound negative for DVT. Patient advised to follow-up with her primary care provider for further evaluation and management or return to the emergency department for any concerning symptoms. She verbalizes understanding of and agreement with plan of care. Critical care attestation.: If time is entered above; I have spent that time in minutes in the direct care of this critically ill patient, excluding procedure time. ED Disposition Clinical Impression: Pain and swelling of right lower extremity Disposition: 01 HOME / SELF CARE / HOMELESS Is pt being admited?: No Does the pt Need Aspirin: No Condition: Stable Instructions: Musculoskeletal Pain Additional Instructions: Follow-up with primary care provider for further evaluation and management. Return to the emergency department as needed. Referrals: RADHA ROSA MD [Staff Physician] - 3-5 Days Time of Disposition: 16:32
[2021-08-08 16:39] VITALS: BP 140/85
== END 2021-08-08 16:39 | disposition home or self-care (01) ==
LOC: ED 13:29
DX: M79.604 Pain in right leg (principal); M79.89 Other specified soft tissue disorders; I10 Essential (primary) hypertension; K21.9 Gastro-esophageal reflux disease without esophagitis; M19.90 Unspecified osteoarthritis, unspecified site; Z87.891 Personal history of nicotine dependence
CPT/HCPCS: 99283

== ENCOUNTER 2021-10-23 16:18 | Inpatient (IN) | payer BC, MEDICARE ==
[2021-10-23 16:59] LABS: Basophils # (Auto) 0.1 K/mm3 (0.0-0.1); Basophils % (Auto) 0.8 % (0.0-1.8); Eosinophils # (Auto) 0.1 K/mm3 (0.0-0.4); Eosinophils % (Auto) 1.8 % (0.0-4.3); Hematocrit 36.2 % (30.3-42.9); Hemoglobin 12.4 gm/dl (10.1-14.3); Lymphocytes # (Auto) 3.2 K/mm3 (1.2-5.4); Lymphocytes % (Auto) 41.5 % (13.4-35.0); Mean Corpuscular HGB Conc 34 % (30-34); Mean Corpuscular Volume 90 fl (79-97); Monocytes # (Auto) 0.5 K/mm3 (0.0-0.8); Monocytes % (Auto) 7.1 % (0.0-7.3); Platelet Count 306 K/mm3 (140-440); Red Blood Count 4.02 M/mm3 (3.65-5.03); Red Cell Distribution Width 12.9 % (13.2-15.2)
[2021-10-23 17:11] LABS: INR 0.97 (0.87-1.13)
[2021-10-23 17:12] LABS: Partial Thromboplastin Time 27.2 Sec. (24.2-36.6)
[2021-10-23 17:21] LABS: Alanine Aminotransferase 12 units/L (7-56); Albumin 4.3 g/dL (3.9-5); BUN/Creatinine Ratio 33; Blood Urea Nitrogen 30 mg/dL (7-17); Calcium 9.8 mg/dL (8.4-10.2); Hemolysis Index 5
--- NOTE | 2021-10-23 17:27 | Cat Scan Report ---
CT HEAD WITHOUT CONTRAST INDICATION / CLINICAL INFORMATION: stroke like symptoms. TECHNIQUE: All CT scans at this location are performed using CT dose reduction for ALARA by means of automated e xposure control. COMPARISON: Head CT 06/01/2019 FINDINGS: HEMORRHAGE: No evidence of intracranial hemorrhage or extra-axial fluid collection. EXTRA-AXIAL SPACES: Cortical sulci, sylvian fissures and basilar cisterns have an unremarkable appear ance. VENTRICULAR SYSTEM: The third and lateral ventricles are of normal size and configuration. CEREBRAL PARENCHYMA: No areas of abnormal brain parenchymal attenuation are identified. There is no i ndication of recent infarction. MIDLINE SHIFT OR HERNIATION: There is no mass effect. CEREBELLUM / BRAINSTEM: There is a region of decreased brain parenchymal attenuation involving the yusuf perior medial aspect of the right cerebellar hemisphere consistent with recent right superior cerebel lar artery infarction. Findings comparison to baseline study 06/01/2019. There is no indication of hemorrhagic transformation of this infarction. Left cerebellar hemisphere and brainstem have a normal appearance. MIDLINE STRUCTURES:No abnormalities of the pituitary gland or pineal region are identified. INTRACRANIAL VESSELS: Calcified atherosclerotic plaque is seen along the course of the cavernous segm ents of both internal carotid arteries. Similar findings are seen at the V4 segments of the vertebral arteries. ORBITS: Status post right-sided cataract surgery. No additional abnormality. SOFT TISSUES of HEAD: A midline scalp nodule is present just above the level of the forehead. This ma y represent a sebaceous cyst, pilar cyst or epidermoid. A similar finding was present on previous henrique dy. CALVARIUM: Evaluation of bone windows reveals no abnormalities. PARANASAL SINUSES / MASTOID AIR CELLS: Visualized portions of the paranasal sinuses are free from inf lammatory mucosal disease. Mastoid air cells are normally pneumatized. ADDITIONAL FINDINGS: None. IMPRESSION: 1. 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 Signer Name: Ba Grimes MD Signed: 10/23/2021 5:23 PM Workstation Name: [id number]
[2021-10-23] MEDS ORDERED: ASPIRIN 325 MG TAB PO ONE (22:41)
--- NOTE | 2021-10-23 22:45 | Emergency Department Report ---
ED Neuro Deficit HPI - General Chief Complaint: Altered Mental Status Stated Complaint: POSSIBLE STROKE 10/22 @7PM Time Seen by Provider: 10/23/21 22:35 Source: patient Mode of arrival: Ambulatory Limitations: No Limitations - Related Data Home Medications: Home Medications Medication Instructions Recorded Confirmed Last Taken Lisinopril/Hydrochlorothiazide 1 tab PO DAILY 11/13/13 02/08/19 02/08/19 05:00 [Lisinopril-Hctz 20-12.5 mg Tab] Mv,Isaias,Min/Iron/Folic Acid/Lut 1 tab PO DAILY 11/13/13 02/08/19 02/07/19 09:00 [Complete Multi Tablet] Vitamin B Complex/Folic Acid 1 tab PO DAILY 11/13/13 02/08/19 02/07/19 09:00 [Super Quints B-50 Tablet] Magnesium 250 mg PO DAILY 01/14/14 02/08/19 02/07/19 09:00 Levothyroxine [Synthroid] 75 mcg PO QAM 12/09/15 02/08/19 02/07/19 09:00 Albuterol Mdi (or & Nicu Only) 1 puff IH PRN PRN 01/31/19 01/31/19 Unknown [ProAir HFA Inhaler] Ascorbic Acid [Vitamin C] 1,000 mg PO DAILY 01/31/19 02/08/19 02/07/19 09:00 Biotin [Biotin 1,000 chew] 1,000 mcg PO DAILY 01/31/19 02/08/19 02/07/19 09:00 Buspirone HCl [busPIRone] 7.5 mg PO PRN PRN 01/31/19 01/31/19 Unknown Buspirone HCl [busPIRone] 15 mg PO DAILY 01/31/19 02/08/19 02/07/19 09:00 Cholecalciferol Vit D3 [Vitamin D3 1,000 unit PO QDAY 01/31/19 02/08/19 02/07/19 09:00 1,000 UNIT TAB] [place]-3/Dha/Epa/Fish Oil [Fish Oil 1 each PO DAILY 01/31/19 02/08/19 02/07/19 09:00 1,200 mg Softgel] Turmeric 400 mg PO DAILY 01/31/19 02/08/19 02/07/19 09:00 Clopidogrel 75 mg PO DAILY 11/19/20 11/19/20 11/18/20 Previous Rx's Medication Instructions Recorded Last Taken Type Apixaban [Eliquis] 5 mg PO DAILY #30 tablet 02/09/19 Unknown Rx Oxycodone HCl/Acetaminophen 1 each PO Q6HR PRN #30 tablet 02/09/19 Unknown Rx [Percocet 7.5/325 mg] Allergies/Adverse Reactions: Allergies Allergy/AdvReac Type Severity Reaction Status Date / Time No Known Allergies Allergy Verified 10/23/21 16:26 ED Review of Systems ROS: Stated complaint: POSSIBLE STROKE 10/22 @7PM Other details as noted in HPI Comment: All other systems reviewed and negative ED Past Medical Hx - Past Medical History Hx Hypertension: Yes (age 55) Hx Heart Attack/AMI: Yes (06/15/2020) Hx Congestive Heart Failure: No Hx Deep Vein Thrombosis: No Hx Pulmonary Embolism: No Hx GERD: Yes Hx Renal Disease: No Hx Arthritis: Yes (2 years ago both legs) Hx Seizures: No Hx Asthma: No Hx COPD: No Hx HIV: No - Surgical History Hx Pacemaker: No Hx Cholecystectomy: No Hx Appendectomy: No - Social History Smoking Status: Former Smoker - Medications Home Medications: Home Medications Medication Instructions Recorded Confirmed Last Taken Type Lisinopril/Hydrochlorothiazide 1 tab PO DAILY 11/13/13 02/08/19 02/08/19 05:00 History [Lisinopril-Hctz 20-12.5 mg Tab] Mv,Isaias,Min/Iron/Folic Acid/Lut 1 tab PO DAILY 11/13/13 02/08/19 02/07/19 09:00 History [Complete Multi Tablet] Vitamin B Complex/Folic Acid 1 tab PO DAILY 11/13/13 02/08/19 02/07/19 09:00 History [Super Quints B-50 Tablet] Magnesium 250 mg PO DAILY 01/14/14 02/08/19 02/07/19 09:00 History Levothyroxine [Synthroid] 75 mcg PO QAM 12/09/15 02/08/19 02/07/19 09:00 History Albuterol Mdi (or & Nicu Only) 1 puff IH PRN PRN 01/31/19 01/31/19 Unknown History [ProAir HFA Inhaler] Ascorbic Acid [Vitamin C] 1,000 mg PO DAILY 01/31/19 02/08/19 02/07/19 09:00 History Biotin [Biotin 1,000 chew] 1,000 mcg PO DAILY 01/31/19 02/08/19 02/07/19 09:00 History Buspirone HCl [busPIRone] 7.5 mg PO PRN PRN 01/31/19 01/31/19 Unknown History Buspirone HCl [busPIRone] 15 mg PO DAILY 01/31/19 02/08/19 02/07/19 09:00 History Cholecalciferol Vit D3 [Vitamin D3 1,000 unit PO QDAY 01/31/19 02/08/19 02/07/19 09:00 History 1,000 UNIT TAB] [place]-3/Dha/Epa/Fish Oil [Fish Oil 1 each PO DAILY 01/31/19 02/08/19 02/07/19 09:00 History 1,200 mg Softgel] Turmeric 400 mg PO DAILY 01/31/19 02/08/19 02/07/19 09:00 History Apixaban [Eliquis] 5 mg PO DAILY #30 tablet 02/09/19 Unknown Rx Oxycodone HCl/Acetaminophen 1 each PO Q6HR PRN #30 tablet 02/09/19 Unknown Rx [Percocet 7.5/325 mg] Clopidogrel 75 mg PO DAILY 11/19/20 11/19/20 11/18/20 History ED Neuro Physical Exam - General Limitations: No Limitations General appearance: alert, in no apparent distress - Head Head exam: Present: atraumatic, normocephalic - Eye Eye exam: Present: normal appearance - ENT ENT exam: Present: mucous membranes moist - Neck Neck exam: Present: normal inspection - Respiratory Respiratory exam: Present: normal lung sounds bilaterally. Absent: respiratory distress - Cardiovascular Cardiovascular Exam: Present: regular rate, normal rhythm. Absent: systolic murmur, diastolic murmur, rubs, gallop - GI/Abdominal GI/Abdominal exam: Present: soft, normal bowel sounds - Extremities Exam Extremities exam: Present: normal inspection - Back Exam Back exam: Present: normal inspection - Neurological Exam Neurological exam: Present: alert, oriented X3 - Psychiatric Psychiatric exam: Present: normal affect, normal mood - Skin Skin exam: Present: warm, dry, intact, normal color. Absent: rash ED Course Vital Signs 10/23/21 16:23 Temperature 98.4 F Pulse Rate 58 L Respiratory 18 Rate Blood Pressure 144/53 [Left] O2 Sat by Pulse 99 Oximetry - Lab Data Result diagrams: 10/23/21 16:33 10/23/21 16:33 Lab Results 10/23/21 10/23/21 10/23/21 Range/Units 16:33 16:33 16:33 WBC 7.6 (4.5-11.0) K/mm3 RBC 4.02 (3.65-5.03) M/mm3 Hgb 12.4 (10.1-14.3) gm/dl Hct 36.2 (30.3-42.9) % MCV 90 (79-97) fl MCH 31 (28-32) pg MCHC 34 (30-34) % RDW 12.9 L (13.2-15.2) % Plt Count 306 (140-440) K/mm3 Lymph % (Auto) 41.5 H (13.4-35.0) % [place] % (Auto) 7.1 (0.0-7.3) % Eos % (Auto) 1.8 (0.0-4.3) % Baso % (Auto) 0.8 (0.0-1.8) % Lymph # (Auto) 3.2 (1.2-5.4) K/mm3 [place] # (Auto) 0.5 (0.0-0.8) K/mm3 Eos # (Auto) 0.1 (0.0-0.4) K/mm3 Baso # (Auto) 0.1 (0.0-0.1) K/mm3 Seg Neutrophils % 48.8 (40.0-70.0) % Seg Neutrophils # 3.7 (1.8-7.7) K/mm3 PT 14.0 (12.2-14.9) Sec. INR 0.97 (0.87-1.13) APTT 27.2 (24.2-36.6) Sec. Sodium 142 (137-145) mmol/L Potassium 3.7 (3.6-5.0) mmol/L Chloride 104.4 (98-107) mmol/L Carbon Dioxide 26 (22-30) mmol/L Anion Gap 15 mmol/L BUN 30 H (7-17) mg/dL Creatinine 0.9 (0.6-1.2) mg/dL Estimated GFR > 60 ml/min BUN/Creatinine Ratio 33 % Glucose 93 (65-100) mg/dL Calcium 9.8 (8.4-10.2) mg/dL Phosphorus (2.5-4.5) mg/dL Magnesium (1.7-2.3) mg/dL Total Bilirubin 0.50 (0.1-1.2) mg/dL AST 23 (5-40) units/L ALT 12 (7-56) units/L Alkaline Phosphatase 77 (35-129) units/L Troponin T < 0.010 (0.00-0.029) ng/mL Total Protein 7.1 (6.3-8.2) g/dL Albumin 4.3 (3.9-5) g/dL Albumin/Globulin Ratio 1.5 % 10/23/21 Range/Units 16:43 WBC (4.5-11.0) K/mm3 RBC (3.65-5.03) M/mm3 Hgb (10.1-14.3) gm/dl Hct (30.3-42.9) % MCV (79-97) fl MCH (28-32) pg MCHC (30-34) % RDW (13.2-15.2) % Plt Count (140-440) K/mm3 Lymph % (Auto) (13.4-35.0) % [place] % (Auto) (0.0-7.3) % Eos % (Auto) (0.0-4.3) % Baso % (Auto) (0.0-1.8) % Lymph # (Auto) (1.2-5.4) K/mm3 [place] # (Auto) (0.0-0.8) K/mm3 Eos # (Auto) (0.0-0.4) K/mm3 Baso # (Auto) (0.0-0.1) K/mm3 Seg Neutrophils % (40.0-70.0) % Seg Neutrophils # (1.8-7.7) K/mm3 PT (12.2-14.9) Sec. INR (0.87-1.13) APTT (24.2-36.6) Sec. Sodium (137-145) mmol/L Potassium (3.6-5.0) mmol/L Chloride (98-107) mmol/L Carbon Dioxide (22-30) mmol/L Anion Gap mmol/L BUN (7-17) mg/dL Creatinine (0.6-1.2) mg/dL Estimated GFR ml/min BUN/Creatinine Ratio % Glucose (65-100) mg/dL Calcium (8.4-10.2) mg/dL Phosphorus 3.50 (2.5-4.5) mg/dL Magnesium 1.90 (1.7-2.3) mg/dL Total Bilirubin (0.1-1.2) mg/dL AST (5-40) units/L ALT (7-56) units/L Alkaline Phosphatase (35-129) units/L Troponin T (0.00-0.029) ng/mL Total Protein (6.3-8.2) g/dL Albumin (3.9-5) g/dL Albumin/Globulin Ratio % Critical care attestation.: If time is entered above; I have spent that time in minutes in the direct care of this critically ill patient, excluding procedure time. ED Disposition Condition: Stable
[2021-10-24] MEDS ORDERED: ACETAMINOPHEN 325 MG TAB PO PRN ×2 (03:02)
[2021-10-24] MEDS ORDERED: PROMETHAZINE 25 MG RECT SUPP PR PRN (03:02)
[2021-10-24] MEDS ORDERED: METOCLOPRAMIDE 10 MG TAB PO PRN (03:02)
[2021-10-24] MEDS ORDERED: MORPHINE 2 MG/1 ML INJ IV PRN ×2 (03:02)
[2021-10-24] MEDS ORDERED: ONDANSETRON 4 MG/2 ML INJ IV PRN ×2 (03:02)
[2021-10-24] MEDS ORDERED: MAGNESIUM HYDROXIDE (MOM) ORAL LIQD UDC PO PRN ×2 (03:02)
[2021-10-24] MEDS ORDERED: MORPHINE 4 MG/1 ML INJ IV PRN ×2 (03:02)
--- NOTE | 2021-10-24 03:15 | History and Physical Report ---
History of Present Illness Date of examination: 10/24/21 Date of admission: 10/24/2021 Chief complaint: Speech Difficulty History of present illness: 76-year-old female with known history of attention, history of coronary disease with [place] in June 2020 presenting to the emergency room today complaining of speech difficulty. Symptoms were said to have started earlier today. She denies any headache or dizziness and denies any diaphoresis. No blurry vision. Denies any numbness or tingling sensation in the extremities. Denies any chest pain or shortness of breath. Work-up in the emergency room today reveals evidence of recent(acute/subacute) right Cerebellar artery infarction. Lab reveals a BUN of 30 and creatinine 0.9. Past History Past Medical History: acute [place] (06/2020), hypertension Past Surgical History: No surgical history Social history: smoking Family history: no significant family history Medications and Allergies Allergies Allergy/AdvReac Type Severity Reaction Status Date / Time No Known Allergies Allergy Verified 10/23/21 16:26 Home Medications Medication Instructions Recorded Confirmed Last Taken Type Lisinopril/Hydrochlorothiazide 1 tab PO DAILY 11/13/13 02/08/19 02/08/19 05:00 History [Lisinopril-Hctz 20-12.5 mg Tab] Mv,Isaias,Min/Iron/Folic Acid/Lut 1 tab PO DAILY 11/13/13 02/08/19 02/07/19 09:00 History [Complete Multi Tablet] Vitamin B Complex/Folic Acid 1 tab PO DAILY 11/13/13 02/08/19 02/07/19 09:00 History [Super Quints B-50 Tablet] Magnesium 250 mg PO DAILY 01/14/14 02/08/19 02/07/19 09:00 History Levothyroxine [Synthroid] 75 mcg PO QAM 12/09/15 02/08/19 02/07/19 09:00 History Albuterol Mdi (or & Nicu Only) 1 puff IH PRN PRN 01/31/19 01/31/19 Unknown History [ProAir HFA Inhaler] Ascorbic Acid [Vitamin C] 1,000 mg PO DAILY 01/31/19 02/08/19 02/07/19 09:00 History Biotin [Biotin 1,000 chew] 1,000 mcg PO DAILY 01/31/19 02/08/19 02/07/19 09:00 History Buspirone HCl [busPIRone] 7.5 mg PO PRN PRN 01/31/19 01/31/19 Unknown History Buspirone HCl [busPIRone] 15 mg PO DAILY 01/31/19 02/08/19 02/07/19 09:00 History Cholecalciferol Vit D3 [Vitamin D3 1,000 unit PO QDAY 01/31/19 02/08/19 02/07/19 09:00 History 1,000 UNIT TAB] [place]-3/Dha/Epa/Fish Oil [Fish Oil 1 each PO DAILY 01/31/19 02/08/19 02/07/19 09:00 History 1,200 mg Softgel] Turmeric 400 mg PO DAILY 01/31/19 02/08/19 02/07/19 09:00 History Apixaban [Eliquis] 5 mg PO DAILY #30 tablet 02/09/19 Unknown Rx Oxycodone HCl/Acetaminophen 1 each PO Q6HR PRN #30 tablet 02/09/19 Unknown Rx [Percocet 7.5/325 mg] Clopidogrel 75 mg PO DAILY 11/19/20 11/19/20 11/18/20 History Review of Systems Constitutional: no fever, no chills Ears, nose, mouth and throat: no nasal congestion, no sore throat Cardiovascular: no chest pain, no palpitations Respiratory: no cough, no shortness of breath Gastrointestinal: no abdominal pain, no nausea, no vomiting, no diarrhea Genitourinary Female: no pelvic pain, no flank pain, no dysuria, no hematuria Musculoskeletal: no neck pain, no low back pain Integumentary: no rash, no pruritis Neurological: no headaches, no confusion Psychiatric: no anxiety, no depression Endocrine: no polyphagia, no polydipsia, no polyuria, no nocturia Exam - Constitutional Vitals: Temp Pulse Resp BP Pulse Ox 98.4 F 58 L 18 144/53 99 10/23/21 16:23 10/23/21 16:23 10/23/21 16:23 10/23/21 16:23 10/23/21 16:23 General appearance: Present: no acute distress, well-nourished - EENT Eyes: Present: PERRL, EOM intact. Absent: scleral icterus ENT: hearing intact, clear oral mucosa, dentition normal - Neck Neck: Present: supple, normal ROM - Respiratory Respiratory effort: normal Respiratory: bilateral: CTA - Cardiovascular Rhythm: regular Heart Sounds: Present: S1 & S2. Absent: gallop, systolic murmur, diastolic murmur, rub, click - Extremities Extremities: no ischemia, pulses intact, pulses symmetrical, No edema, normal temperature, normal color, Full ROM Peripheral Pulses: within normal limits - Abdominal General gastrointestinal: Present: soft, non-tender, non-distended, normal bowel sounds. Absent: mass - Integumentary Integumentary: Present: clear, warm, dry, normal turgor. Absent: rash - Musculoskeletal Musculoskeletal: strength equal bilaterally - Psychiatric Psychiatric: appropriate mood/affect, intact judgment & insight, memory intact, cooperative - Neurologic Neurologic: CNII-XII intact, no focal deficits, moves all extremities HEART Score - HEART Score Troponin: Troponin T < 0.010 ng/mL (0.00-0.029) 10/23/21 16:33 Results - Labs CBC & Chem 7: 10/23/21 16:33 10/23/21 16:33 Labs: Abnormal lab results 10/23/21 10/23/21 Range/Units 16:33 16:33 RDW 12.9 L (13.2-15.2) % Lymph % (Auto) 41.5 H (13.4-35.0) % BUN 30 H (7-17) mg/dL Assessment and Plan Assessment : 1.CVA 2.Hypertension 3.H/O CAD with [place] in 06/2020 4.GERD 5. Dehydration Plan: 1. Patient admitted and placed on aspirin and statin. 2. Neurology consult requested. 3. We will schedule patient for MRI brain and echocardiogram. 4. We will continue routine home medications once reconciled. 5. Encouraged adequate p.o. fluid hydration DVT prophylaxis: SQ Heparin Code Status: Full Code
--- NOTE | 2021-10-24 10:01 | Progress Note ---
Assessment and Plan Assessment and plan: 76-year-old female with known history of hypertension, history of coronary disease with [place] in June 2020 presenting to the emergency room complaining of speech difficulty and ataxia. Work-up in the emergency room today revealed evidence of recent(acute/subacute) right Cerebellar artery infarction. The patient was admitted with diagnoses below: Right superior cerebellar CVA Hypertension History of CAD with [place] June 2020 GERD 10/24/2021. CT scan of the head reveals recent (acute/subacute) right Cerebellar artery infarction. Continue secondary prevention with aspirin and Lipitor. Check lipid profile. Neurology consultation pending. Check COVID PCR. Follow- up echocardiogram, carotid and MRI brain. PT/OT/ST evaluations pending History Interval history: No new issues overnight Hospitalist Physical - Constitutional Vitals: Temp Pulse Resp BP Pulse Ox 98.4 F 59 L 18 144/59 100 10/23/21 16:23 10/24/21 07:57 10/24/21 06:25 10/24/21 06:25 10/24/21 07:57 General appearance: Present: no acute distress, well-nourished - EENT Eyes: Present: PERRL, EOM intact ENT: hearing intact, clear oral mucosa, dentition normal - Neck Neck: Present: supple, normal ROM - Respiratory Respiratory effort: normal Respiratory: bilateral: CTA - Cardiovascular Rhythm: regular Heart Sounds: Present: S1 & S2. Absent: gallop, rub - Extremities Extremities: no ischemia, No edema, Full ROM - Abdominal General gastrointestinal: soft, non-tender, non-distended, normal bowel sounds - Integumentary Integumentary: Present: clear, warm, dry - Neurologic Neurologic: CNII-XII intact, moves all extremities HEART Score - HEART Score Troponin: Troponin T < 0.010 ng/mL (0.00-0.029) 10/23/21 16:33 Results - Labs CBC & Chem 7: 10/23/21 16:33 10/23/21 16:33 Labs: Laboratory Last Values WBC 7.6 K/mm3 (4.5-11.0) 10/23/21 16:33 RBC 4.02 M/mm3 (3.65-5.03) 10/23/21 16:33 Hgb 12.4 gm/dl (10.1-14.3) 10/23/21 16:33 Hct 36.2 % (30.3-42.9) 10/23/21 16:33 MCV 90 fl (79-97) 10/23/21 16:33 MCH 31 pg (28-32) 10/23/21 16:33 MCHC 34 % (30-34) 10/23/21 16:33 RDW 12.9 % (13.2-15.2) L 10/23/21 16:33 Plt Count 306 K/mm3 (140-440) 10/23/21 16:33 Lymph % (Auto) 41.5 % (13.4-35.0) H 10/23/21 16:33 [place] % (Auto) 7.1 % (0.0-7.3) 10/23/21 16:33 Eos % (Auto) 1.8 % (0.0-4.3) 10/23/21 16:33 Baso % (Auto) 0.8 % (0.0-1.8) 10/23/21 16:33 Lymph # (Auto) 3.2 K/mm3 (1.2-5.4) 10/23/21 16:33 [place] # (Auto) 0.5 K/mm3 (0.0-0.8) 10/23/21 16:33 Eos # (Auto) 0.1 K/mm3 (0.0-0.4) 10/23/21 16:33 Baso # (Auto) 0.1 K/mm3 (0.0-0.1) 10/23/21 16:33 Seg Neutrophils % 48.8 % (40.0-70.0) 10/23/21 16:33 Seg Neutrophils # 3.7 K/mm3 (1.8-7.7) 10/23/21 16:33 PT 14.0 Sec. (12.2-14.9) 10/23/21 16:33 INR 0.97 (0.87-1.13) 10/23/21 16:33 APTT 27.2 Sec. (24.2-36.6) 10/23/21 16:33 Sodium 142 mmol/L (137-145) 10/23/21 16:33 Potassium 3.7 mmol/L (3.6-5.0) 10/23/21 16:33 Chloride 104.4 mmol/L (98-107) 10/23/21 16:33 Carbon Dioxide 26 mmol/L (22-30) 10/23/21 16:33 Anion Gap 15 mmol/L 10/23/21 16:33 BUN 30 mg/dL (7-17) H 10/23/21 16:33 Creatinine 0.9 mg/dL (0.6-1.2) 10/23/21 16:33 Estimated GFR > 60 ml/min 10/23/21 16:33 BUN/Creatinine Ratio 33 % 10/23/21 16:33 Glucose 93 mg/dL (65-100) 10/23/21 16:33 Calcium 9.8 mg/dL (8.4-10.2) 10/23/21 16:33 Phosphorus 3.50 mg/dL (2.5-4.5) 10/23/21 16:43 Magnesium 1.90 mg/dL (1.7-2.3) 10/23/21 16:43 Total Bilirubin 0.50 mg/dL (0.1-1.2) 10/23/21 16:33 AST 23 units/L (5-40) 10/23/21 16:33 ALT 12 units/L (7-56) 10/23/21 16:33 Alkaline Phosphatase 77 units/L (35-129) 10/23/21 16:33 Troponin T < 0.010 ng/mL (0.00-0.029) 10/23/21 16:33 Total Protein 7.1 g/dL (6.3-8.2) 10/23/21 16:33 Albumin 4.3 g/dL (3.9-5) 10/23/21 16:33 Albumin/Globulin Ratio 1.5 % 10/23/21 16:33 Active Medications - Current Medications Current Medications: Generic Name Dose Route Start Last Admin Trade Name Freq PRN Reason Stop Dose Admin Acetaminophen 650 mg 10/24/21 03:02 Acetaminophen 325 Mg Tab PO Q4H PRN Pain, Mild (1-3) Aspirin 325 mg 10/24/21 10:00 Aspirin 325 Mg Tab PO QDAY [facility] Atorvastatin Calcium 40 mg 10/24/21 22:00 Atorvastatin 40 Mg Tab PO QHS JEANNA Bisacodyl 10 mg 10/24/21 03:02 Bisacodyl 10 Mg Rect Supp [place] QDAY PRN Constipation Heparin Sodium (Porcine) 5,000 unit 10/24/21 06:00 Heparin 5,000 Unit/1 Ml Vial SUB-Q Q8HR JEANNA Magnesium Hydroxide 30 ml 10/24/21 03:02 Magnesium Hydroxide (Mom) Oral Liqd Udc PO Q4H PRN Constipation Metoclopramide HCl 10 mg 10/24/21 03:02 Metoclopramide 10 Mg Tab PO Q6H PRN Nausea And Vomiting Morphine Sulfate 2 mg 10/24/21 03:02 Morphine 2 Mg/1 Ml Inj IV Q4H PRN Pain, Moderate (4-6) Morphine Sulfate 4 mg 10/24/21 03:02 Morphine 4 Mg/1 Ml Inj IV Q4H PRN Pain , Severe (7-10) Ondansetron HCl 4 mg 10/24/21 03:02 Ondansetron 4 Mg/2 Ml Inj IV Q8H PRN Nausea And Vomiting Promethazine HCl 25 mg 10/24/21 03:02 Promethazine 25 Mg Rect Supp [place] Q6H PRN Nausea And Vomiting Sodium Chloride 10 ml 10/24/21 10:00 Sodium Chloride 0.9% 10 Ml Flush Syringe IV BID JEANNA Sodium Chloride 10 ml 10/24/21 03:02 Sodium Chloride 0.9% 10 Ml Flush Syringe IV PRN PRN LINE FLUSH
[2021-10-24] MEDS: ASPIRIN 325 MG TAB PO SCH (10:27)
[2021-10-24] MEDS: HEPARIN 5,000 UNIT/1 ML VIAL SUB-Q SCH ×3 (10:28→21:04)
[2021-10-24 11:32] LABS: Chol/HDL Ratio 1.89 %
[2021-10-25] MEDS: HEPARIN 5,000 UNIT/1 ML VIAL SUB-Q SCH ×3 (06:14→21:00)
[2021-10-25 06:51] LABS: Basophils % (Auto) 0.7 % (0.0-1.8); Eosinophils # (Auto) 0.2 K/mm3 (0.0-0.4); Eosinophils % (Auto) 2.8 % (0.0-4.3); Hematocrit 35.6 % (30.3-42.9); Hemoglobin 11.8 gm/dl (10.1-14.3); Lymphocytes # (Auto) 2.3 K/mm3 (1.2-5.4); Lymphocytes % (Auto) 35.6 % (13.4-35.0); Mean Corpuscular HGB Conc 33 % (30-34); Mean Corpuscular Volume 90 fl (79-97); Monocytes # (Auto) 0.4 K/mm3 (0.0-0.8); Monocytes % (Auto) 6.6 % (0.0-7.3); Platelet Count 303 K/mm3 (140-440); Red Blood Count 3.94 M/mm3 (3.65-5.03); Red Cell Distribution Width 12.8 % (13.2-15.2)
[2021-10-25 07:36] LABS: BUN/Creatinine Ratio 24; Blood Urea Nitrogen 19 mg/dL (7-17); Calcium 9.2 mg/dL (8.4-10.2); Hemolysis Index 7
--- NOTE | 2021-10-25 08:22 | Progress Note ---
Assessment and Plan Assessment and plan: 76-year-old female with known history of hypertension, history of coronary disease with [place] in June 2020 presenting to the emergency room complaining of speech difficulty and ataxia. Work-up in the emergency room today revealed evidence of recent(acute/subacute) right Cerebellar artery infarction. The patient was admitted with diagnoses below: Right superior cerebellar CVA Hypertension History of CAD with [place] June 2020 GERD 10/24/2021. CT scan of the head reveals recent (acute/subacute) right Cerebellar artery infarction. Continue secondary prevention with aspirin and Lipitor. Check lipid profile. Neurology consultation pending. Check COVID PCR. Follow- up echocardiogram, carotid and MRI brain. PT/OT/ST evaluations pending 10/25/2021. Await MRI and carotid ultrasound. Echocardiogram completed and await reading. Speech therapy cleared the patient with regards to swallowing. Await PT/OT evaluation. Continue secondary prevention with aspirin and Lipitor. Follow-up lipid profile. Neurology consultation pending. History Interval history: No new issues overnight Hospitalist Physical - Constitutional Vitals: Temp Pulse Resp BP Pulse Ox 98.1 F 57 L 17 134/66 95 10/25/21 07:27 10/25/21 07:27 10/25/21 07:27 10/25/21 07:27 10/25/21 07:27 General appearance: Present: no acute distress, well-nourished - EENT Eyes: Present: PERRL, EOM intact ENT: hearing intact, clear oral mucosa, dentition normal - Neck Neck: Present: supple, normal ROM - Respiratory Respiratory effort: normal Respiratory: bilateral: CTA - Cardiovascular Rhythm: regular Heart Sounds: Present: S1 & S2. Absent: gallop, rub - Extremities Extremities: no ischemia, No edema, Full ROM - Abdominal General gastrointestinal: soft, non-tender, non-distended, normal bowel sounds - Integumentary Integumentary: Present: clear, warm, dry - Neurologic Neurologic: CNII-XII intact, moves all extremities HEART Score - HEART Score Troponin: Troponin T < 0.010 ng/mL (0.00-0.029) 10/23/21 16:33 Results - Labs CBC & Chem 7: 10/25/21 05:33 10/25/21 05:33 Labs: Laboratory Last Values WBC 6.5 K/mm3 (4.5-11.0) 10/25/21 05:33 RBC 3.94 M/mm3 (3.65-5.03) 10/25/21 05:33 Hgb 11.8 gm/dl (10.1-14.3) 10/25/21 05:33 Hct 35.6 % (30.3-42.9) 10/25/21 05:33 MCV 90 fl (79-97) 10/25/21 05:33 MCH 30 pg (28-32) 10/25/21 05:33 MCHC 33 % (30-34) 10/25/21 05:33 RDW 12.8 % (13.2-15.2) L 10/25/21 05:33 Plt Count 303 K/mm3 (140-440) 10/25/21 05:33 Lymph % (Auto) 35.6 % (13.4-35.0) H 10/25/21 05:33 [place] % (Auto) 6.6 % (0.0-7.3) 10/25/21 05:33 Eos % (Auto) 2.8 % (0.0-4.3) 10/25/21 05:33 Baso % (Auto) 0.7 % (0.0-1.8) 10/25/21 05:33 Lymph # (Auto) 2.3 K/mm3 (1.2-5.4) 10/25/21 05:33 [place] # (Auto) 0.4 K/mm3 (0.0-0.8) 10/25/21 05:33 Eos # (Auto) 0.2 K/mm3 (0.0-0.4) 10/25/21 05:33 Baso # (Auto) 0.0 K/mm3 (0.0-0.1) 10/25/21 05:33 Seg Neutrophils % 54.3 % (40.0-70.0) 10/25/21 05:33 Seg Neutrophils # 3.5 K/mm3 (1.8-7.7) 10/25/21 05:33 PT 14.0 Sec. (12.2-14.9) 10/23/21 16:33 INR 0.97 (0.87-1.13) 10/23/21 16:33 APTT 27.2 Sec. (24.2-36.6) 10/23/21 16:33 Sodium 136 mmol/L (137-145) L 10/25/21 05:33 Potassium 3.3 mmol/L (3.6-5.0) L 10/25/21 05:33 Chloride 102.9 mmol/L (98-107) 10/25/21 05:33 Carbon Dioxide 24 mmol/L (22-30) 10/25/21 05:33 Anion Gap 12 mmol/L 10/25/21 05:33 BUN 19 mg/dL (7-17) H 10/25/21 05:33 Creatinine 0.8 mg/dL (0.6-1.2) 10/25/21 05:33 Estimated GFR > 60 ml/min 10/25/21 05:33 BUN/Creatinine Ratio 24 % 10/25/21 05:33 Glucose 88 mg/dL (65-100) 10/25/21 05:33 Calcium 9.2 mg/dL (8.4-10.2) 10/25/21 05:33 Phosphorus 3.50 mg/dL (2.5-4.5) 10/23/21 16:43 Magnesium 1.90 mg/dL (1.7-2.3) 10/23/21 16:43 Total Bilirubin 0.50 mg/dL (0.1-1.2) 10/23/21 16:33 AST 23 units/L (5-40) 10/23/21 16:33 ALT 12 units/L (7-56) 10/23/21 16:33 Alkaline Phosphatase 77 units/L (35-129) 10/23/21 16:33 Troponin T < 0.010 ng/mL (0.00-0.029) 10/23/21 16:33 Total Protein 7.1 g/dL (6.3-8.2) 10/23/21 16:33 Albumin 4.3 g/dL (3.9-5) 10/23/21 16:33 Albumin/Globulin Ratio 1.5 % 10/23/21 16:33 Triglycerides 91 mg/dL (2-149) 10/24/21 10:21 Cholesterol 163 mg/dL (50-199) 10/24/21 10:21 LDL Cholesterol Direct 64 mg/dL (50-130) 10/24/21 10:21 HDL Cholesterol 86 mg/dL (40-59) H 10/24/21 10:21 Cholesterol/HDL Ratio 1.89 % 10/24/21 10:21 SARS-CoV-2 (PCR) Negative (Negative) 10/24/21 14:32 Active Medications - Current Medications Current Medications: Generic Name Dose Route Start Last Admin Trade Name Freq PRN Reason Stop Dose Admin Acetaminophen 650 mg 10/24/21 03:02 Acetaminophen 325 Mg Tab PO Q4H PRN Pain, Mild (1-3) Aspirin 325 mg 10/24/21 10:00 10/24/21 10:27 Aspirin 325 Mg Tab PO 325 mg QDAY JEANNA Administration Atorvastatin Calcium 40 mg 10/24/21 22:00 10/24/21 21:04 Atorvastatin 40 Mg Tab PO 40 mg QHS JEANNA Administration Bisacodyl 10 mg 10/24/21 03:02 Bisacodyl 10 Mg Rect Supp [place] QDAY PRN Constipation Heparin Sodium (Porcine) 5,000 unit 10/24/21 06:00 10/25/21 06:14 Heparin 5,000 Unit/1 Ml Vial SUB-Q 5,000 unit Q8HR JEANNA Administration Magnesium Hydroxide 30 ml 10/24/21 03:02 Magnesium Hydroxide (Mom) Oral Liqd Udc PO Q4H PRN Constipation Metoclopramide HCl 10 mg 10/24/21 03:02 Metoclopramide 10 Mg Tab PO Q6H PRN Nausea And Vomiting Morphine Sulfate 2 mg 10/24/21 03:02 Morphine 2 Mg/1 Ml Inj IV Q4H PRN Pain, Moderate (4-6) Morphine Sulfate 4 mg 10/24/21 03:02 Morphine 4 Mg/1 Ml Inj IV Q4H PRN Pain , Severe (7-10) Ondansetron HCl 4 mg 10/24/21 03:02 Ondansetron 4 Mg/2 Ml Inj IV Q8H PRN Nausea And Vomiting Promethazine HCl 25 mg 10/24/21 03:02 Promethazine 25 Mg Rect Supp [place] Q6H PRN Nausea And Vomiting Sodium Chloride 10 ml 10/24/21 10:00 10/24/21 21:05 Sodium Chloride 0.9% 10 Ml Flush Syringe IV 10 ml BID JEANNA Administration Sodium Chloride 10 ml 10/24/21 03:02 Sodium Chloride 0.9% 10 Ml Flush Syringe IV PRN PRN LINE FLUSH
[2021-10-25] MEDS: ASPIRIN 325 MG TAB PO SCH (10:05)
[2021-10-26] MEDS: HEPARIN 5,000 UNIT/1 ML VIAL SUB-Q SCH ×3 (05:32→22:40)
[2021-10-26 06:08] LABS: Basophils # (Auto) 0.1 K/mm3 (0.0-0.1); Basophils % (Auto) 0.8 % (0.0-1.8); Eosinophils # (Auto) 0.2 K/mm3 (0.0-0.4); Eosinophils % (Auto) 2.7 % (0.0-4.3); Hemoglobin 12.3 gm/dl (10.1-14.3); Lymphocytes # (Auto) 2.7 K/mm3 (1.2-5.4); Lymphocytes % (Auto) 41.4 % (13.4-35.0); Mean Corpuscular HGB Conc 32 % (30-34); Mean Corpuscular Volume 92 fl (79-97); Monocytes # (Auto) 0.5 K/mm3 (0.0-0.8); Platelet Count 298 K/mm3 (140-440); Red Blood Count 4.13 M/mm3 (3.65-5.03); Red Cell Distribution Width 13.2 % (13.2-15.2)
[2021-10-26 06:16] LABS: BUN/Creatinine Ratio 30; Blood Urea Nitrogen 24 mg/dL (7-17); Calcium 9.5 mg/dL (8.4-10.2); Hemolysis Index 22
--- NOTE | 2021-10-26 09:59 | Progress Note ---
Assessment and Plan Assessment and plan: 76-year-old female with known history of hypertension, history of coronary disease with [place] in June 2020 presenting to the emergency room complaining of speech difficulty and ataxia. Work-up in the emergency room today revealed evidence of recent(acute/subacute) right Cerebellar artery infarction. The patient was admitted with diagnoses below: Right superior cerebellar CVA Hypertension History of CAD with [place] June 2020 GERD 10/24/2021. CT scan of the head reveals recent (acute/subacute) right Cerebellar artery infarction. Continue secondary prevention with aspirin and Lipitor. Check lipid profile. Neurology consultation pending. Check COVID PCR. Follow- up echocardiogram, carotid and MRI brain. PT/OT/ST evaluations pending 10/25/2021. Await MRI and carotid ultrasound. Echocardiogram completed and await reading. Speech therapy cleared the patient with regards to swallowing. Await PT/OT evaluation. Continue secondary prevention with aspirin and Lipitor. Follow-up lipid profile. Neurology consultation pending. 10/26/2021. Echocardiogram reveals left ventricle moderately dilated with mild concentric left ventricular hypertrophy. Left ventricular systolic function is normal. LVEF is 50-55%. 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 Await MRI and carotid ultrasound. Neurology consultation pending. Await PT/OT evaluation. Continue secondary prevention with aspirin and Lipitor. History Interval history: No new issues overnight Hospitalist Physical - Constitutional Vitals: Temp Pulse Resp BP Pulse Ox 97.6 F 55 L 19 142/53 100 10/26/21 07:09 10/26/21 07:09 10/25/21 12:47 10/26/21 07:09 10/26/21 07:09 General appearance: Present: no acute distress, well-nourished - EENT Eyes: Present: PERRL, EOM intact ENT: hearing intact, clear oral mucosa, dentition normal - Neck Neck: Present: supple, normal ROM - Respiratory Respiratory effort: normal Respiratory: bilateral: CTA - Cardiovascular Rhythm: regular Heart Sounds: Present: S1 & S2. Absent: gallop, rub - Extremities Extremities: no ischemia, No edema, Full ROM - Abdominal General gastrointestinal: soft, non-tender, non-distended, normal bowel sounds - Integumentary Integumentary: Present: clear, warm, dry - Neurologic Neurologic: CNII-XII intact, moves all extremities HEART Score - HEART Score Troponin: Troponin T < 0.010 ng/mL (0.00-0.029) 10/23/21 16:33 Results - Labs CBC & Chem 7: 10/26/21 05:44 10/26/21 05:44 Labs: Laboratory Last Values WBC 6.5 K/mm3 (4.5-11.0) 10/26/21 05:44 RBC 4.13 M/mm3 (3.65-5.03) 10/26/21 05:44 Hgb 12.3 gm/dl (10.1-14.3) 10/26/21 05:44 Hct 38.0 % (30.3-42.9) 10/26/21 05:44 MCV 92 fl (79-97) 10/26/21 05:44 MCH 30 pg (28-32) 10/26/21 05:44 MCHC 32 % (30-34) 10/26/21 05:44 RDW 13.2 % (13.2-15.2) 10/26/21 05:44 Plt Count 298 K/mm3 (140-440) 10/26/21 05:44 Lymph % (Auto) 41.4 % (13.4-35.0) H 10/26/21 05:44 [place] % (Auto) 7.0 % (0.0-7.3) 10/26/21 05:44 Eos % (Auto) 2.7 % (0.0-4.3) 10/26/21 05:44 Baso % (Auto) 0.8 % (0.0-1.8) 10/26/21 05:44 Lymph # (Auto) 2.7 K/mm3 (1.2-5.4) 10/26/21 05:44 [place] # (Auto) 0.5 K/mm3 (0.0-0.8) 10/26/21 05:44 Eos # (Auto) 0.2 K/mm3 (0.0-0.4) 10/26/21 05:44 Baso # (Auto) 0.1 K/mm3 (0.0-0.1) 10/26/21 05:44 Seg Neutrophils % 48.1 % (40.0-70.0) 10/26/21 05:44 Seg Neutrophils # 3.1 K/mm3 (1.8-7.7) 10/26/21 05:44 PT 14.0 Sec. (12.2-14.9) 10/23/21 16:33 INR 0.97 (0.87-1.13) 10/23/21 16:33 APTT 27.2 Sec. (24.2-36.6) 10/23/21 16:33 Sodium 141 mmol/L (137-145) 10/26/21 05:44 Potassium 3.7 mmol/L (3.6-5.0) 10/26/21 05:44 Chloride 108.7 mmol/L (98-107) H 10/26/21 05:44 Carbon Dioxide 24 mmol/L (22-30) 10/26/21 05:44 Anion Gap 12 mmol/L 10/26/21 05:44 BUN 24 mg/dL (7-17) H 10/26/21 05:44 Creatinine 0.8 mg/dL (0.6-1.2) 10/26/21 05:44 Estimated GFR > 60 ml/min 10/26/21 05:44 BUN/Creatinine Ratio 30 % 10/26/21 05:44 Glucose 85 mg/dL (65-100) 10/26/21 05:44 Calcium 9.5 mg/dL (8.4-10.2) 10/26/21 05:44 Phosphorus 3.50 mg/dL (2.5-4.5) 10/23/21 16:43 Magnesium 1.90 mg/dL (1.7-2.3) 10/23/21 16:43 Total Bilirubin 0.50 mg/dL (0.1-1.2) 10/23/21 16:33 AST 23 units/L (5-40) 10/23/21 16:33 ALT 12 units/L (7-56) 10/23/21 16:33 Alkaline Phosphatase 77 units/L (35-129) 10/23/21 16:33 Troponin T < 0.010 ng/mL (0.00-0.029) 10/23/21 16:33 Total Protein 7.1 g/dL (6.3-8.2) 10/23/21 16:33 Albumin 4.3 g/dL (3.9-5) 10/23/21 16:33 Albumin/Globulin Ratio 1.5 % 10/23/21 16:33 Triglycerides 91 mg/dL (2-149) 10/24/21 10:21 Cholesterol 163 mg/dL (50-199) 10/24/21 10:21 LDL Cholesterol Direct 64 mg/dL (50-130) 10/24/21 10:21 HDL Cholesterol 86 mg/dL (40-59) H 10/24/21 10:21 Cholesterol/HDL Ratio 1.89 % 10/24/21 10:21 SARS-CoV-2 (PCR) Negative (Negative) 10/24/21 14:32 [place]/IV: Voiding Method Toilet Active Medications - Current Medications Current Medications: Generic Name Dose Route Start Last Admin Trade Name Freq PRN Reason Stop Dose Admin Acetaminophen 650 mg 10/24/21 03:02 10/25/21 17:15 Acetaminophen 325 Mg Tab PO 650 mg Q4H PRN Administration Pain, Mild (1-3) Aspirin 325 mg 10/24/21 10:00 10/25/21 10:05 Aspirin 325 Mg Tab PO 325 mg QDAY JEANNA Administration Atorvastatin Calcium 40 mg 10/24/21 22:00 10/25/21 21:00 Atorvastatin 40 Mg Tab PO 40 mg QHS JEANNA Administration Bisacodyl 10 mg 10/24/21 03:02 Bisacodyl 10 Mg Rect Supp [place] QDAY PRN Constipation Heparin Sodium (Porcine) 5,000 unit 10/24/21 06:00 10/26/21 05:32 Heparin 5,000 Unit/1 Ml Vial SUB-Q 5,000 unit Q8HR JEANNA Administration Magnesium Hydroxide 30 ml 10/24/21 03:02 Magnesium Hydroxide (Mom) Oral Liqd Udc PO Q4H PRN Constipation Metoclopramide HCl 10 mg 10/24/21 03:02 Metoclopramide 10 Mg Tab PO Q6H PRN Nausea And Vomiting Morphine Sulfate 2 mg 10/24/21 03:02 Morphine 2 Mg/1 Ml Inj IV Q4H PRN Pain, Moderate (4-6) Morphine Sulfate 4 mg 10/24/21 03:02 Morphine 4 Mg/1 Ml Inj IV Q4H PRN Pain , Severe (7-10) Ondansetron HCl 4 mg 10/24/21 03:02 Ondansetron 4 Mg/2 Ml Inj IV Q8H PRN Nausea And Vomiting Promethazine HCl 25 mg 10/24/21 03:02 Promethazine 25 Mg Rect Supp [place] Q6H PRN Nausea And Vomiting Sodium Chloride 10 ml 10/24/21 10:00 10/25/21 21:01 Sodium Chloride 0.9% 10 Ml Flush Syringe IV 10 ml BID JEANNA Administration Sodium Chloride 10 ml 10/24/21 03:02 Sodium Chloride 0.9% 10 Ml Flush Syringe IV PRN PRN LINE FLUSH
[2021-10-26] MEDS: ASPIRIN 325 MG TAB PO SCH (11:10)
--- NOTE | 2021-10-26 12:04 | Magnetic Resonance Report ---
MRI BRAIN WITHOUT CONTRAST INDICATION / CLINICAL INFORMATION: stroke, dizziness, dysphasia. TECHNIQUE: Multisequence, multiplanar images were obtained. COMPARISON: CT head dated 10/23/2021 FINDINGS: CEREBRAL and CEREBELLAR HEMISPHERES: Subacute ischemic infarct in the right superior cerebellar arter y territory is again noted measuring approximately 2.5 x 2.5 x 2.4 cm. There is residual diffusion re striction in this area although decreased signal on the ADC map has essentially resolved. No addition al areas of diffusion restriction are identified. No midline shift. No acute hemorrhage. No extra-a xial fluid collection. There is moderate diffuse cortical volume loss and minimal microangiopathy in the white matter. No chronic infarct is detected. VENTRICLES: Normal in size and configuration for age. VISUALIZED ORBITS: No significant abnormality. VISUALIZED PARANASAL SINUSES: No significant abnormality. ADDITIONAL FINDINGS: None. IMPRESSION: 1. No acute intracranial abnormality. 2. Subacute ischemic infarct in the superior right cerebellum within the right superior cerebellar ar rosa territory. 3. Mild volume loss and chronic white matter changes. Signer Name: Rob Almaraz Jr, MD Signed: 10/26/2021 11:59 AM Workstation Name: [id number]
--- NOTE | 2021-10-26 12:17 | Vascular Lab Report ---
DUPLEX DOPPLER ULTRASOUND CAROTID, BILATERAL INDICATION / CLINICAL INFORMATION: stroke. COMPARISON: None available. FINDINGS: RIGHT CAROTID: Mild atherosclerotic plaque. - PLAQUE ESTIMATE (%): < 50% - CCA velocity: 82 cm/sec. - ICA peak systolic velocity: 101 cm/sec. - ICA/CCA PSV Ratio: Less than 2. Right Vertebral Artery: Antegrade flow. LEFT CAROTID: Mild atherosclerotic plaque. - PLAQUE ESTIMATE (%): < 50% - CCA velocity: 79 cm/sec. - ICA peak systolic velocity: 121 cm/sec. - ICA/CCA PSV Ratio: Less than 2. Left Vertebral Artery: Antegrade flow. IMPRESSION: 1. Right Internal Carotid Artery: Less than 50% diameter stenosis. 2. Left Internal Carotid Artery: Less than 50% diameter stenosis. Velocity criteria are extrapolated from diameter data as defined by the Society of Radiologists in Ul trasound Consensus Conference, Radiology 2003; 229;340-346. NO STENOSIS (NORMAL) - Plaque = none; ICA PSV < 125 cm/sec; ICA/CCA PSV Ratio < 2.0 <50% STENOSIS - Plaque < 50%; ICA PSV < 125 cm/sec; ICA/CCA PSV Ratio < 2.0 50-69% STENOSIS - Plaque > 50%; ICA PSV = 125-230 cm/sec; ICA/CCA PSV Ratio = 2.0-4.0 >70% BUT <100% STENOSIS - Plaque > 50%; ICA PSV > 230 cm/sec; ICA/CCA PSV Ratio > 4.0 NEAR OCCLUSION - Plaque = visible lumen; ICA PSV = high/low/none; ICA/CCA PSV Ratio = variable TOTAL OCCLUSION - Plaque = no lumen; ICA PSV = none; ICA/CCA PSV Ratio = N/A Scribed by: Liv Lenz RDMS, RVT, RMSKS Scribed: 10/26/2021 10:23 AM I have reviewed the images, agree with this report, and edited this report as needed. Signer Name: Corona Manuel MD Signed: 10/26/2021 12:13 PM Workstation Name: [employer]
--- NOTE | 2021-10-26 16:35 | Consultation ---
History of Present Illness Consult date: 10/26/21 Reason for Consult: CVA Chief complaint: "I am fine." History of present illness: 76 yo right-handed female with hypertension, on eliquis (pt cannot state why), cadx, tobacco abuse, who presents with noted noted speech difficulty. She notes that the symptoms were acute in nature. She also notes she is not compliant with taking Eliquis. Hospital course revealed acute kidney injury. Currently, she feels she is back at her baseline. Past History Past Medical History: acute [place] (06/2020), hypertension Past Surgical History: No surgical history Social history: smoking Family history: no significant family history Medications and Allergies Allergies Allergy/AdvReac Type Severity Reaction Status Date / Time No Known Allergies Allergy Verified 10/26/21 15:10 Home Medications Medication Instructions Recorded Confirmed Last Taken Type Levothyroxine [Synthroid] 75 mcg PO QAM 12/09/15 10/26/21 02/07/19 09:00 History Buspirone HCl [busPIRone] 7.5 - 15 mg PO BID 01/31/19 10/26/21 02/07/19 09:00 History Ascorbic Acid [C-1000] 1,000 mg PO QDAY 10/26/21 10/26/21 Unknown History AtorvaSTATin [Lipitor] 40 mg PO QHS 10/26/21 10/26/21 Unknown History Biotin [Biotin 1,000 chew] 1,000 mcg PO QDAY 10/26/21 10/26/21 Unknown History Furosemide [Lasix] 20 mg PO QDAY 10/26/21 10/26/21 Unknown History Lisinopril/Hydrochlorothiazide 1 tab PO QDAY 10/26/21 10/26/21 Unknown History [Zestoretic 20-25 mg] Mv,Calcium,Min/Iron/Folic/Vitk 1 each PO QDAY 10/26/21 10/26/21 Unknown History [One-A-Day Women's Complete Tab] [place]-3S/Dha/Epa/Fish Oil [Fish 1 each PO QDAY 10/26/21 10/26/21 Unknown History Oil 1,200 mg Softgel] Pantoprazole [Protonix] 40 mg PO BID 10/26/21 10/26/21 Unknown History Vitamin B Complex/Folic Acid 0.4 mg PO QDAY 10/26/21 10/26/21 Unknown History [Super Quints B-50 Tablet] carvediloL [Coreg] 3.125 mg PO BID 10/26/21 10/26/21 Unknown History Active Meds: Active Medications Acetaminophen (Acetaminophen 325 Mg Tab) 650 mg PO Q4H PRN PRN Reason: Pain, Mild (1-3) Last Admin: 10/25/21 17:15 Dose: 650 mg Ascorbic Acid (Ascorbic Acid 500 Mg Tab) 1,000 mg PO QDAY [facility] Aspirin (Aspirin 325 Mg Tab) 325 mg PO QDAY [facility] Last Admin: 10/26/21 11:10 Dose: 325 mg Atorvastatin Calcium (Atorvastatin 40 Mg Tab) 40 mg PO QHS [facility] Last Admin: 10/25/21 21:00 Dose: 40 mg Bisacodyl (Bisacodyl 10 Mg Rect Supp) 10 mg DC QDAY PRN PRN Reason: Constipation Buspirone HCl (Buspirone 5 Mg Tab) 7.5 - 15 mg PO BID [facility] Carvedilol (Carvedilol 3.125 Mg Tab) 3.125 mg PO BID [facility] Fish Oil ([place]-3 Fatty Acids/Fish Oil 1 Gram Cap) 1,000 mg PO QDAY [facility] Furosemide (Furosemide 20 Mg Tab) 20 mg PO QDAY [facility] Heparin Sodium (Porcine) (Heparin 5,000 Unit/1 Ml Vial) 5,000 unit SUB-Q Q8HR [facility] Last Admin: 10/26/21 14:26 Dose: 5,000 unit Hydrochlorothiazide (Hydrochlorothiazide 25 Mg Tab) 25 mg PO QDAY [facility] Levothyroxine Sodium (Levothyroxine 75 Mcg Tab) 75 mcg PO QAM [facility] Lisinopril (Lisinopril 20 Mg Tab) 20 mg PO QDAY [facility] Magnesium Hydroxide (Magnesium Hydroxide (Mom) Oral Liqd Udc) 30 ml PO Q4H PRN PRN Reason: Constipation Metoclopramide HCl (Metoclopramide 10 Mg Tab) 10 mg PO Q6H PRN PRN Reason: Nausea And Vomiting Morphine Sulfate (Morphine 2 Mg/1 Ml Inj) 2 mg IV Q4H PRN PRN Reason: Pain, Moderate (4-6) Morphine Sulfate (Morphine 4 Mg/1 Ml Inj) 4 mg IV Q4H PRN PRN Reason: Pain , Severe (7-10) Multivitamins/Minerals (Multivitamins,Ther W-Minerals Tab) 1 each PO QDAY [facility] Ondansetron HCl (Ondansetron 4 Mg/2 Ml Inj) 4 mg IV Q8H PRN PRN Reason: Nausea And Vomiting Pantoprazole Sodium (Pantoprazole 40 Mg Tab) 40 mg PO BID [facility] Promethazine HCl (Promethazine 25 Mg Rect Supp) 25 mg DC Q6H PRN PRN Reason: Nausea And Vomiting Sodium Chloride (Sodium Chloride 0.9% 10 Ml Flush Syringe) 10 ml IV BID [facility] Last Admin: 10/26/21 11:10 Dose: 10 ml Sodium Chloride (Sodium Chloride 0.9% 10 Ml Flush Syringe) 10 ml IV PRN PRN PRN Reason: LINE FLUSH Vitamin B Complex/Vitamin C (B Complex W/Vitamin C Tab) 1 each PO QDAY [facility] Review of Systems All systems: negative (as per hpi;) Physical Examination - Vital Signs Vital Signs: Vital Signs Temp Pulse Resp BP Pulse Ox 98.4 F 58 L 18 144/53 99 10/23/21 16:23 10/23/21 16:23 10/23/21 16:23 10/23/21 16:23 10/23/21 16:23 - Physical Exam Narrative exam: Gen: nad, well-nourished; Head: normocephalic; Eyes: no gaze deviation; no ptosis; ENT: normal vocalization; CVS: warm and well-perfused; Pulm: no respiratory distress; GI: appears non-distended; Ext: no cyanosis appreciated at distal extremities; Skin: no acute rash at distal extremities; Heme: no pathologic ecchymosis appreciated at distal extremities; Neuro: alert, oriented to name, age, year, not month ("November" then corrected to "October"), no dysarthria, no aphasia, CN 2 - PERRL, visual britton grossly intact, CN 3, 4, 6 - EOMI, CN 5 - facial sensation symmetric to light touch, CN 7 - facial movement symmetric, CN 8 - hearing grossly intact, CN 9, 10 - uvula midline, CN 11 symmetric shoulder movement, CN 12 - tongue midline; Motor - at least 4+/5 at all exts except 3/5 w/ 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; Sensory - light touch symm etric, Cerebellar - fnf /hts intact, Gait - deferred secondary to fall risk; NIHSS (1a.) Level of Consciousness:0 (1b.) LOC Questions:1 (1c.) LOC Commands:0 (2.) Best Gaze:0 (3.) Visual:0 (4.) Facial Palsy:0 (5a.) Motor Arm, Left:0 (5b.) Motor Arm, Right:0 (6a.) Motor Leg, Left:0 (6b.) Motor Leg, Right:0 (7.) Limb Ataxia:0 (8.) Sensory:0 (9.) Best Language:0 (10.) Dysarthria:0 (11.) Extinction and Inattention:0 NIHSS Total Score: 1 Results - Laboratory Findings CBC and BMP: 10/26/21 05:44 10/26/21 05:44 Abnormal Lab Findings: Abnormal Labs 10/23/21 10/23/21 10/24/21 16:33 16:33 10:21 RDW 12.9 L Lymph % (Auto) 41.5 H Sodium Potassium Chloride BUN 30 H HDL Cholesterol 86 H 10/25/21 10/25/21 10/26/21 05:33 05:33 05:44 RDW 12.8 L Lymph % (Auto) 35.6 H 41.4 H Sodium 136 L Potassium 3.3 L Chloride BUN 19 H HDL Cholesterol 10/26/21 05:44 RDW Lymph % (Auto) Sodium Potassium Chloride 108.7 H BUN 24 H HDL Cholesterol Assessment and Plan 76 yo right-handed female with hypertension, on eliquis (pt cannot state why), cadx, tobacco abuse, who presents with noted speech difficulty. 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 1. Acute Ischemic Stroke: ASA 325 mg PO qday, MR Brain image reviewed personally; ordered CTA Head/Neck w/ & w/o contrast, TTEcho, confirm LDL/TSH/Covid-19, telemetry, NIHSS q4 hours; SBP goal 160-200 mmHg and DBP 80- 100 mmHg for 48 more hours. Statin therapy for a goal LDL of 70, when patient passes swallow evaluation. PT/OT/ST/Swallow evaluation. Long-term risk-factor modification, including a strict diet/exercise regimen for secondary stroke prophylaxis. Stroke education prior to discharge. 2. Hypertension - aim for nomotension after 48 more hours. 3. Noncompliance - pt states she is noncompliant with Eliquis but not able to state the reason for taking the eliquis; if pt has underlying paroxysmal afib, please reinitiate eliquis on 11/03/21. 4. Tobacco abuse - outpatient smoking cessation via pcp. Valentin Galo MD Neurology [id number]
[2021-10-26] MEDS ORDERED: busPIRone 5 MG TAB PO SCH ×2 (22:00)
[2021-10-26] MEDS: carvediloL 3.125 MG TAB PO SCH (22:40)
[2021-10-26] MEDS: PANTOPRAZOLE 40 MG TAB PO SCH (22:41)
[2021-10-27] MEDS ORDERED: busPIRone 5 MG TAB PO PRN (00:31)
[2021-10-27 06:23] LABS: Basophils % (Auto) 0.5 % (0.0-1.8); Eosinophils # (Auto) 0.2 K/mm3 (0.0-0.4); Eosinophils % (Auto) 2.5 % (0.0-4.3); Hematocrit 34.3 % (30.3-42.9); Hemoglobin 11.4 gm/dl (10.1-14.3); Lymphocytes # (Auto) 2.5 K/mm3 (1.2-5.4); Lymphocytes % (Auto) 32.6 % (13.4-35.0); Mean Corpuscular HGB Conc 33 % (30-34); Mean Corpuscular Volume 90 fl (79-97); Monocytes # (Auto) 0.5 K/mm3 (0.0-0.8); Monocytes % (Auto) 6.8 % (0.0-7.3); Platelet Count 265 K/mm3 (140-440)
[2021-10-27] MEDS: HEPARIN 5,000 UNIT/1 ML VIAL SUB-Q SCH ×2 (06:27→14:35)
[2021-10-27 06:44] LABS: BUN/Creatinine Ratio 29; Blood Urea Nitrogen 23 mg/dL (7-17); Calcium 9.4 mg/dL (8.4-10.2); Hemolysis Index 4
[2021-10-27] MEDS ORDERED: BIOTIN 1000 MCG PO SCH (10:00)
[2021-10-27] MEDS ORDERED: MULTIVITAMINS,THER W-MINERALS TAB PO SCH (10:00)
[2021-10-27] MEDS ORDERED: FUROSEMIDE 20 MG TAB PO SCH (10:00)
[2021-10-27] MEDS ORDERED: OMEGA-3 FATTY ACIDS/FISH OIL 1 GRAM CAP PO SCH (10:00)
[2021-10-27] MEDS ORDERED: LISINOPRIL 20 MG TAB PO SCH (10:00)
[2021-10-27] MEDS ORDERED: B COMPLEX W/VITAMIN C TAB PO SCH (10:00)
[2021-10-27] MEDS ORDERED: ASCORBIC ACID 500 MG TAB PO SCH (10:00)
[2021-10-27] MEDS ORDERED: NON-FORMULARY EACH (Lisinopril/Hydrochlorothiazide [Zestoretic 20-25 Mg] 1 EACH Tablet) PO SCH (10:00)
[2021-10-27] MEDS ORDERED: LEVOTHYROXINE 75 MCG TAB PO SCH (10:00)
[2021-10-27] MEDS ORDERED: busPIRone 5 MG TAB PO SCH (10:00)
[2021-10-27] MEDS ORDERED: hydroCHLOROthiazide 25 MG TAB PO SCH (10:00)
[2021-10-27] MEDS: PANTOPRAZOLE 40 MG TAB PO SCH (10:27)
[2021-10-27] MEDS: carvediloL 3.125 MG TAB PO SCH (10:27)
[2021-10-27] MEDS: ASPIRIN 325 MG TAB PO SCH (10:29)
--- NOTE | 2021-10-27 11:42 | Discharge Summary ---
Providers - Providers Date of Admission: 10/24/21 03:02 Date of discharge: 10/27/21 Attending physician: LYLE MEJIA MD 10/24/21 03:02 Consult to Physician [CONS] Routine Comment: Consulting Provider: BERTO PLUNKETT Physician Instructions: Reason For Exam: CVA Occupational Therapy Evaluate and Treat [CONS] Routine Comment: Reason For Exam: Neuro deficits Physical Therapy Evaluation and Treat [CONS] Routine Comment: Reason For Exam: Neuro deficits 10/24/21 03:06 Speech Therapy Evaluation and Treat [CONS] Routine Reason For Exam: swallow eval Primary care physician: RADHA ROSA Hospitalization Reason for admission: Right superior cerebellar CVA Condition: Stable Pertinent studies: Reviewed. Procedures: None. Hospital course: Patient is a 76-year-old with past medical history of hypertension, CAD with MA (June 2020), GERD, arthritis, and obesity who presented to the ED with complaints of difficulty with her speech that had started earlier in that day. Patient denied any numbness or tingling sensation in her extremities or acute weakness. In the ED patient was found to be hemodynamically stable with relatively unremarkable labs. There was concern for acute ischemic CVA, and the patient was admitted for further management. Patient underwent CT head noncontrast that revealed "evidence of recent (acute or subacute) right superior cerebellar artery infarction". TTE revealed EF 50-55% with moderately dilated LV, normal LV systolic function, mild concentric LVH, hypokinetic apical and anteroseptal farmer with Doppler flow pattern suggesting pseudonormalization, severely dilated LA, mildly dilated RA. MRI brain without contrast revealed "subacute ischemic infarct in the superior right cerebellum within the right superior cerebellar artery territory". Neurology was consulted for further management. Patient will continue with aspirin 325 mg daily and atorvastatin 40 mg daily. Patient will follow-up with neurology in outpatient setting. Patient was evaluated by speech therapy for dysphagia. Physical therapy and Occupational Therapy recommended the patient be discontinued home without any additional needs. Patient is medically clear for discharge. Disposition: 01 HOME / SELF CARE / HOMELESS Final Discharge Diagnosis (Prints w/discharge instructions): Right superior cerebellar CVA, hypertension, history of CAD with MA, GERD, obesity. Time spent for discharge: 45 min Core Measure Documentation - Palliative Care Palliative Care/ Comfort Measures: Not Applicable - Core Measures Any of the following diagnoses?: stroke - Stroke Discharge Requirements Statin for LDL = or >70 mg/dl on DC: Yes Anticoag for atrial fib/atrial flutter: Not Applicable Antithrombotic for ischemic stroke: Yes Exam - Constitutional Vitals: Temp Pulse Resp BP Pulse Ox 98.1 F 71 16 143/64 97 10/27/21 08:10 10/27/21 10:27 10/27/21 04:01 10/27/21 10:27 10/27/21 08:10 General appearance: Present: no acute distress, well-nourished, obese - EENT Eyes: Present: PERRL, EOM intact ENT: hearing intact, clear oral mucosa, dentition normal - Neck Neck: Present: supple, normal ROM - Respiratory Respiratory effort: normal Respiratory: bilateral: CTA - Cardiovascular Rhythm: regular Heart Sounds: Present: S1 & S2 - Extremities Extremities: no ischemia, pulses intact, pulses symmetrical, No edema, normal temperature, normal color Peripheral Pulses: within normal limits - Abdominal General gastrointestinal: Present: soft, non-tender, non-distended, normal bowel sounds Female genitourinary: Present: deferred - Rectal Rectal Exam: deferred - Integumentary Integumentary: Present: clear, warm, dry - Musculoskeletal Musculoskeletal: strength equal bilaterally - Psychiatric Psychiatric: appropriate mood/affect, memory intact, cooperative - Neurologic Neurologic: CNII-XII intact, moves all extremities - Allied Health Allied health notes reviewed: nursing Plan Activity: advance as tolerated Diet: low salt Additional Instructions: Patient is a 76-year-old with past medical history of hypertension, CAD with MA (June 2020), GERD, arthritis, and obesity who presented to the ED with complaints of difficulty with her speech that had sta rted earlier in that day. Patient denied any numbness or tingling sensation in her extremities or acute weakness. In the ED patient was found to be hemodynamically stable with relatively unremarkable labs. There was concern for acute ischemic CVA, and the patient was admitted for further management. Patient underwent CT head noncontrast that revealed "evidence of recent (acute or subacute) right superior cerebellar artery infarction". TTE revealed EF 50- 55% with moderately dilated LV, normal LV systolic function, mild concentric LVH, hypokinetic apical and anteroseptal farmer with Doppler flow pattern suggesting pseudonormalization, severely dilated LA, mildly dilated RA. MRI brain without contrast revealed "subacute ischemic infarct in the superior right cerebellum within the right superior cerebellar artery territory". Neurology was consulted for further management. Patient will continue with aspirin 325 mg daily and atorvastatin 40 mg daily. Patient will follow-up with neurology in outpatient setting. Patient was evaluated by speech therapy for dysphagia. Physical therapy and Occupational Therapy recommended the patient be discontinued home without any additional needs. Patient is medically clear for discharge. Care Plan Goals: Patient is medically cleared for discharge. Assessment: Patient is a 76-year-old with past medical history of hypertension, CAD with MA (June 2020), GERD, arthritis, and obesity who presented to the ED with complaints of difficulty with her speech that had started earlier in that day. Patient denied any numbness or tingling sensation in her extremities or acute weakness. In the ED patient was found to be hemodynamically stable with relatively unremarkable labs. There was concern for acute ischemic CVA, and the patient was admitted for further management. Patient underwent CT head noncontrast that revealed "evidence of recent (acute or subacute) right superior cerebellar artery infarction". TTE revealed EF 50-55% with moderately dilated LV, normal LV systolic function, mild concentric LVH, hypokinetic apical and anteroseptal farmer with Doppler flow pattern suggesting pseudonormalization, severely dilated LA, mildly dilated RA. MRI brain without contrast revealed "subacute ischemic infarct in the superior right cerebellum within the right superior cerebellar artery territory". Neurology was consulted for further management. Patient will continue with aspirin 325 mg daily and atorvastatin 40 mg daily. Patient will follow-up with neurology in outpatient setting. Patient was evaluated by speech therapy for dysphagia. Physical therapy and Occupational Therapy recommended the patient be discontinued home without any additional needs. Patient is medically clear for discharge. Follow up with: RADHA ROSA MD [Primary Care Provider] - 7 Days INDIRA CHASE MD [Staff Physician] - 7 Days Prescriptions: AtorvaSTATin [Lipitor] 40 mg PO QHS #30 tablet Aspirin 325 mg PO QDAY #30 tablet carvediloL [Coreg] 3.125 mg PO BID #60 tab hydroCHLOROthiazide [HCTZ] 25 mg PO QDAY #30 tablet Furosemide [Lasix TAB] 20 mg PO QDAY #30 tab Pantoprazole [Protonix TAB] 40 mg PO BID #60 tab Levothyroxine [Synthroid] 75 mcg PO QAM #30 tab lisinopriL [Zestril TAB] 20 mg PO QDAY #30 tablet
[2021-10-27 12:01] VITALS: BP 122/45
--- NOTE | 2021-10-27 13:41 | Electrocardiograph Report ---
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
== END 2021-10-27 15:49 | disposition home or self-care (01) | DRG 66 ==
LOC: ED 16:18 → 4A 10-24 03:02
PROVIDERS: ADMIT Internal Medicine Geriatric Medicine; ATTEND Student in an Organized Health Care Education/Training Program
DX: I63.9 Cerebral infarction, unspecified (principal); I10 Essential (primary) hypertension; Z20.822 Contact with and (suspected) exposure to COVID-19; K21.9 Gastro-esophageal reflux disease without esophagitis; M19.90 Unspecified osteoarthritis, unspecified site; I25.10 Atherosclerotic heart disease of native coronary artery without angina pectoris; E86.0 Dehydration; Z91.19 Patient's noncompliance with other medical treatment and regimen; F17.200 Nicotine dependence, unspecified, uncomplicated; E66.9 Obesity, unspecified; Z68.32 Body mass index [BMI] 32.0-32.9, adult; Z79.899 Other long term (current) drug therapy; I25.2 Old myocardial infarction
CPT/HCPCS: 36415; 70450; 70551; 80048; 80053; 80061; 83735; 84100; 84484; 85025; 85610; 85730; 93005; 93306; 93880; 99285; G0378; C8929; J1644; J2270; U0003